=== PATIENT | female | born 1985 | race African-American/Black ===

== ENCOUNTER 2020-07-06 11:59 | Outpatient (REF) | payer OTHER, SELFPAY ==
[2020-07-06 12:50] LABS: Lipase 56 U/L (8-78)
[2020-07-06 13:10] LABS: Vitamin D 25-OH Total 14.9 ng/mL (>30)
== END 2020-07-06 12:00 | disposition home or self-care (01) ==
LOC: HO.LAB 11:59
PROVIDERS: Visit Provider Internal Medicine Gastroenterology
DX: E55.9 Vitamin D deficiency, unspecified (principal); R10.10 Upper abdominal pain, unspecified
CPT/HCPCS: 36415; 82306; 83690

== ENCOUNTER → 2020-11-18 13:07 | Outpatient (BNVA) | payer OTHER, SELFPAY | PROVIDERS: Visit Provider Internal Medicine Gastroenterology ==

== ENCOUNTER → 2021-01-25 | Outpatient (REF) | payer OTHER, SELFPAY ==
--- NOTE | ~2021-01-25 | NM_ITS ---
EXAMINATION: RADIONUCLIDE SOLID FOOD GASTRIC EMPTYING 4-HOUR STUDY CLINICAL INFORMATION: Early satiety. COMPARISON: No previous gastric emptying study is available for comparison. TECHNIQUE: A standard meal consisting of 4 oz of Egg Beaters brand equivalent tagged with 1 mCi Tc-99m Sulfur Colloid, 8 oz water and 2 slices of toast with jelly was administered orally to the patient. Images were obtained using a dual head gamma camera in the anterior and posterior projections over of the stomach immediately post ingestion and at hourly intervals up to 4 hours post ingestion. The anterior and posterior counts at each time interval were averaged using the geometric mean and expressed as percentage of the immediate post ingestion counts. FINDINGS: There is good visualization of activity in the stomach immediately post ingestion. As the study progresses, there is only fair clearance of activity from the stomach and visualization of increasing small bowel activity. At the end of the study there is mild abnormal retention of activity in the stomach at 4 hours. Retention in the stomach at each time interval was: 1 hour 85% (normal 37%-90%) 2 hours 51% (normal 30%-60%) 3 hours 26% 4 hours 19% (normal 0%-10%) NM/NM gastric emptying study IMPRESSION: Abnormal study. There is mild abnormal retention of solid food in the stomach at 4 hours.
== END ==
LOC: HO.NUCMED
PROVIDERS: Visit Provider Internal Medicine Gastroenterology
DX: R68.81 Early satiety (principal)
CPT/HCPCS: 78264; A9541

== ENCOUNTER → 2021-02-10 10:23 | Outpatient (BNVA) | payer OTHER, SELFPAY | PROVIDERS: Visit Provider Internal Medicine Gastroenterology ==

== ENCOUNTER 2021-04-20 08:03 | Emergency (ER) | payer OTHER, SELFPAY ==
[2021-04-20 08:05] VITALS: BP 119/70; PULSE 89; RESP 18; TEMP 35.9; O2SAT 99; BMI 31.1
--- NOTE | 2021-04-20 08:27 | ED_ITS ---
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 This happened about one hour ago. Patient is up to date with her tetanous shot. chief complaint: eye pain Onset (ago): minute(s) Onset description: sudden Duration: constant Location: left eye Eye Symptoms: burning and pain Severity: mild Related Data Previous Rx's Medication Instructions Recorded omeprazole 20 mg capsule,delayed 20 mg PO BID #180 cap 07/06/20 release cholecalciferol (vitamin D3) 125 125 mcg PO DAILY 60 Days #60 cap 07/11/20 mcg (5,000 unit) capsule famotidine 20 mg tablet 20 mg PO BID 30 Days #60 tab 11/18/20 metoclopramide HCl 5 mg tablet 5 mg PO TID 30 Days #90 tab 02/10/21 (Reglan) besifloxacin 0.6 % eye 1 drp OPHTHALMIC-LEFT TID 7 Days 04/20/21 drops,suspension (Besivance) #5 ml Allergies Allergy/AdvReac Type Severity Reaction Status Date / Time No Known Allergies Allergy Verified 02/10/21 10:25 [No Known Allergies*] Review of Systems Constitutional: Constitutional: Reports no additional constitutional complaints Eyes: Eyes: Reports no additional eye complaints ENT: Denies dizziness Cardiovascular: Cardiovascular: Reports no additional cardiovascular complaints Respiratory: Respiratory: Reports as per HPI Gastrointestinal: Gastrointestinal: Reports no additional gastrointestinal complaints Genitourinary: Genitourinary: Reports no additional female genitourinary complaints Musculoskeletal: Musculoskeletal: Reports no additional musculoskeletal complaints Integumentary/Breasts: Skin/Breast: Denies rash Neurologic: Reports system reviewed and no additional complaints, except as documented, Denies dizziness and Denies Sensory deficit (Neuro) Psychiatric: Psychiatric: Denies anxiety PMFSH Past Medical History Medical History Elevated lipase Surgical History H/O section H/O esophagogastroduodenoscopy S/P dilatation and curettage Social History Social History Alcohol intake: unknown Patient Tobacco Use Status: Never used Tobacco Physical Exam Vital Signs: Vital Signs: Last Vital Signs Temp 96.7 F L 04/20/21 08:05 Pulse 89 04/20/21 08:05 Resp 18 04/20/21 08:05 BP 119/70 04/20/21 08:05 Pulse Ox 99 04/20/21 08:05 Body Mass Index 31.1 Const: General: healthy appearing Nutritional Appearance: average body habitus Orientation/consciousness: oriented to person and patient oriented x3 Limitations: no limitations HENMT: Head: Yes normal to inspection Ears: external ears normal General nose exam: Normal external nose present Mouth: Normal oral and palatal mucosa present and oropharynx normal Throat: Yes posterior oropharynx normal Eyes: Other: left eye with slight injection Neck: Other: supple Neck: Yes normal visual inspection Chest: Chest palpation & inspection: normal inspection of the chest Resp: Auscultation: clear to auscultation bilaterally Cardio: Jugular venous distension: no JVD Rate: regular rate Rhythm: regular rhythm Heart sounds: S1 normal heart sound present and S2 normal heart sound present GI: Inspection: Yes normal to inspection Palpation (GI): Soft to palpation, nontender and No hepatosplenomegaly present Auscultation: normal bowel sounds : General: Yes no CVA tenderness Back/Spine/Pelvis: Back: no CVA tenderness Skin: General skin exam: no rashes or lesions noted Neuro: General: oriented to person and patient oriented x3 Cranial nerves: Yes CN's II-XII intact bilaterally Motor exam (neuro): 5/5 motor strength present throughout Sensory Exam: No Sensory deficit (Neuro) Extrem: General: Yes normal to inspection Psych: Appearance: grossly normal Course Reevaluation(s) Reevaluation #1: irrigated with 2L NS, flouriscene stain shows uptake in the center of the cornea, antibiotics given Time: 10:14 Discharge Plan Discharge Clinical Impression: Corneal abrasion, Chemical exposure of eye Patient Disposition: Home, Self-Care Instructions: Corneal Abrasion (ED) Additional Instructions: must go to work connection for clearance Prescriptions: New Besivance 0.6 % drops,suspension 1 drp ophthalmic-Left TID 7 Days Qty: 5 RF: 0 No Action omeprazole 20 mg capsule,delayed release(DR/EC) 20 mg PO BID Qty: 180 RF: 1 cholecalciferol (vitamin D3) 125 mcg (5,000 unit) capsule 125 mcg PO DAILY 60 Days Qty: 60 RF: 3 famotidine 20 mg tablet 20 mg PO BID 30 Days Qty: 60 RF: 3 metoclopramide HCl [Reglan] 5 mg tablet 5 mg PO TID 30 Days Qty: 90 RF: 1 Interventions: ED Discharge Assessment Last Done: 04/20/21 10:31 Discharge Date/Time: 04/20/21 10:31
[2021-04-20] MEDS: Tetracaine HCl/PF 0.5% Oph Sol 4 ML DROPS 3 DROP EYE-LEFT (08:46)
[2021-04-20] MEDS: Fluorescein Sodium STRIP 1 STRIP EYE-LEFT (10:14)
[2021-04-20] MEDS: Erythromycin Base 0.5% Oph Oin 1 GM TUBE 1 CM EYE-LEFT (10:24)
== END 2021-04-20 10:31 | disposition home or self-care (01) ==
PROVIDERS: Emergency Provider Emergency Medicine
DX: S05.02XA Injury of conjunctiva and corneal abrasion without foreign body, left eye, initial encounter (principal); X58.XXXA Exposure to other specified factors, initial encounter; Y93.9 Activity, unspecified; Y92.239 Unspecified place in hospital as the place of occurrence of the external cause; Y99.0 Civilian activity done for income or pay; Z77.29 Contact with and (suspected) exposure to other hazardous substances
CPT/HCPCS: 99284

== ENCOUNTER → 2021-04-20 10:37 | Outpatient (BNVA) | payer OTHER, SELFPAY | PROVIDERS: Visit Provider Physician Assistant ==

== ENCOUNTER 2022-02-13 12:15 | Outpatient (REF) | payer OTHER, SELFPAY ==
--- NOTE | ~2022-02-13 | XR_ITS ---
EXAMINATION: XR knee standing BI, XR knee LT 2V CLINICAL INFORMATION: Reason for Exam M25.561 - Pain in left and right knee COMPARISON: MRI knee 02/15/2022 TECHNIQUE: Two views of the left knee rate 1 view of the bilateral standing knees. FINDINGS: * Minimally depressed impaction fractures at the sulcus terminalis and posterior medial and lateral tibial plateau were better characterized on subsequently performed MR knee. * Joint spaces are maintained without significant degenerative change. * Small suprapatellar joint effusion. XR/XR knee standing BI IMPRESSION: Minimally depressed impaction fractures at the sulcus terminalis and posterior medial and lateral tibial plateau were better characterized on subsequently performed MR knee. Small suprapatellar joint effusion.
--- NOTE | ~2022-02-13 | XR_ITS ---
EXAMINATION: XR knee standing BI, XR knee LT 2V CLINICAL INFORMATION: Reason for Exam M25.561 - Pain in left and right knee COMPARISON: MRI knee 02/15/2022 TECHNIQUE: Two views of the left knee rate 1 view of the bilateral standing knees. FINDINGS: * Minimally depressed impaction fractures at the sulcus terminalis and posterior medial and lateral tibial plateau were better characterized on subsequently performed MR knee. * Joint spaces are maintained without significant degenerative change. * Small suprapatellar joint effusion. XR/XR knee LT 2V IMPRESSION: Minimally depressed impaction fractures at the sulcus terminalis and posterior medial and lateral tibial plateau were better characterized on subsequently performed MR knee. Small suprapatellar joint effusion.
== END 2022-02-13 12:16 | disposition home or self-care (01) ==
LOC: HO.HOSX 12:15
PROVIDERS: Visit Provider Physician Assistant
DX: M23.92 Unspecified internal derangement of left knee (principal)
CPT/HCPCS: 73560; 73565; 99202

== ENCOUNTER 2022-02-15 12:20 | Outpatient (REF) | payer OTHER, SELFPAY ==
--- NOTE | ~2022-02-15 | MR_ITS ---
EXAMINATION: MR KNEE WITHOUT CONTRAST, LEFT CLINICAL INFORMATION: Left knee pain and swelling. Jumping injury. Webster a pop. Injury 3 days ago. COMPARISON: Left knee radiographs dated 02/13/2022. TECHNIQUE: MRI of the knee without contrast was performed using routine sequences on a high-field scanner. FINDINGS: MENISCI: Medial Meniscus: Intact Lateral Meniscus: Complete radial tear of the posterior horn/root junction with a superiorly displaced meniscal flap. The meniscal body is slightly laterally extruded with minimal inner margin fraying. LIGAMENTS: Cruciate: Complete tear of the anterior cruciate ligament with diffuse thickening and irregularity of the torn ligament fibers. Adjacent soft tissue edema. Intact posterior cruciate ligament. Collateral: Edema adjacent to the medial collateral ligament which could represent a grade 1 sprain. Intact fibular collateral ligament. EXTENSOR MECHANISM: Intact. ARTICULAR CARTILAGE/BONE: Patellofemoral Compartment: Intact articular cartilage. Medial Compartment: Minimally depressed impaction fracture at the posterior aspect of the medial tibial plateau measuring up to 2 cm in ML dimension with 0.1 cm of cortical step-off. Lateral Compartment: Minimally depressed impaction fracture at the posterior aspect of the lateral tibial plateau measuring 2.1 cm in ML dimension. Minimal cortical depression with marrow edema at the sulcus terminalis. JOINT FLUID AND BURSAE: Moderate joint effusion. Prominent circumferential soft tissue edema. MR/MR knee LT wo con IMPRESSION: 1. Acute, complete tear of the anterior cruciate ligament. 2. Probable grade 1 sprain of the medial collateral ligament. 3. Complete radial tear of the lateral meniscus posterior horn/root junction with a superiorly displaced meniscal flap adjacent to the posterior root. 4. Minimally depressed impaction fractures at the sulcus terminalis and posterior medial and lateral tibial plateau. Moderate joint effusion with prominent circumferential soft tissue edema.
== END 2022-02-15 12:21 | disposition home or self-care (01) ==
LOC: HO.MRI 12:20
PROVIDERS: Visit Provider Physician Assistant
DX: M23.92 Unspecified internal derangement of left knee (principal)
CPT/HCPCS: 73721

== ENCOUNTER → 2022-02-20 13:04 | Outpatient (BNVA) | payer OTHER, SELFPAY | PROVIDERS: Visit Provider Physician Assistant | DX: M23.92 Unspecified internal derangement of left knee (principal); S83.512D Sprain of anterior cruciate ligament of left knee, subsequent encounter | CPT/HCPCS: 20610 ==

== ENCOUNTER 2022-03-10 09:00 | Outpatient (RCR) | payer OTHER, SELFPAY ==
--- NOTE | 2022-02-22 10:52 | MHC.PT.EP ---
[facility] [place] Office [place] Office [place] Office [address] Marley Allred [address] [phone] F: [phone] F: [phone] F: [phone] F: [phone] Physical Therapy Plan of Care Date of Evaluation: Date of Surgery: n/a Diagnosis: L ACL tear Assessment: Patient is a 37 year old female presenting to PT with complaints of pain in her L knee. Pt reports onset of pain began 02/12/2022 due to landing weird after a layup when playing basketball. He presents today with impairments in pain, ROM, strength, gait mechanics. 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 Pt expresses superintendent terminal goal of improving ROM for surgery which is tentatively scheduled for 03/22/2022, and is motivated to work towards this in PT. Clinical presentation today is most consistent with signs and sx associated with MRI findings of L ACL tear and pt will benefit from skilled PT to address the following problems and impairments noted upon evaluation: pain, ROM, strength, gait mechanics. These problems limit the patient with the following functional activities: work, ambulation, stair negotiation, ADLs, basketball, running. The prescribed treatment plan of care is medically necessary. Co-morbidities of none were identified and taken into considerations of plan of care. Pt was educated on HEP, role of PT, prognosis, POC, proper crutch use and brace donning. Frequency and Duration: The patient will be seen 2 x week x 4 weeks Short Term Goals: Pt will demonstrate improved L knee AROM for flexion by 20 degrees in 2 weeks to maximize post op outcomes. Pt will demonstrate improved L knee MMT by 1/3 grade in 2 weeks. Jail Goals: Pt will demonstrate improved LEFI score by 9 points in 4 weeks for improved post op outcomes. Pt will demonstrate ability to ambulate in brace and good mechanics in 4 weeks to maximize post op outcomes. Treatment Plan: Modalities to reduce pain, spasms and effusion. Manual therapy to restore motion and function. Therapeutic exercise to improve strength and flexibility. Neuromuscular re-education for posture and balance. Therapeutic activities to return to functional activities of daily living. Electronically signed by: Jeanette Hogue, PT, DPT, ATC Please sign and return to therapist. Thank you for your referral.
--- NOTE | 2022-03-10 09:54 | MHC.PT.DC ---
[facility] [place] Office [place] Office [place] Office [address] Marley Allred 140 [facility] [phone] F: [phone] F: [phone] F: [phone] F: [phone] Physical Therapy Discharge Report Diagnosis: L ACL tear Date of Surgery: n/a Date of Evaluation: 02/22/22 Date of Discharge: 03/10/22 Treatments to Date: 6 Cancellations to Date: 0 No Shows to Date: 0 Discharge Status: Discharge Summary: 03/10/2022: Pt has made gains in knee ROM, strength, and gait mechanics in the brace since start of care which will improve her post op outcomes. She is scheduled for surgery next Sunday. Pt is a good candidate for surgery as she continues with quite a bit of limitations in ROM, strength, and general functional mobility. Pt will benefit from skilled PT following surgery. Reviewed proper way to elevate when icing at home after surgery and avoid putting pillows under the knee. Electronically signed by: Jeanette Hogue, PT, DPT, ATC Please sign and return to therapist. Thank you for your referral.
== END 2022-03-10 09:54 | disposition home or self-care (01) ==
LOC: HO.PTCHIC 09:00
PROVIDERS: Visit Provider Physician Assistant
DX: S83.512A Sprain of anterior cruciate ligament of left knee, initial encounter (principal)
CPT/HCPCS: 97110; 97140; 97161; 97530

== ENCOUNTER 2022-03-15 07:34 | Day surgery (SDC) | payer OTHER, SELFPAY ==
[2022-03-09 14:31] VITALS: BMI 31.1
--- NOTE | 2022-03-14 09:11 | HO.ANESPROP2 ---
Documented by User: Amy Franco NP 03/14/22 09:12 HPI - Anesthesia Eval Consult details Narrative: 37yo F for Left ACL Allograft reconstruction PMFSH Active Problems Active Problems: All Active Problems (Updated 02/15/22 @ 16:22 by Tasneem Funk PA-C) S/P ACL reconstruction (Acute) Left ACL tear (Acute) Internal derangement of knee (Acute) Gastroparesis (Acute) Early satiety (Acute) Vitamin D deficiency (Acute) Upper abdominal pain (Acute) GERD with esophagitis (Acute) Past Medical History Medical History Elevated lipase Surgical History Surgical History H/O section H/O esophagogastroduodenoscopy S/P dilatation and curettage Social History Social History Alcohol intake: unknown Patient Tobacco Use Status: Never used Tobacco Use of substances other than those prescribed or required for medical reasons: No Are you DNR?: No Advance Directives: No Advance Directives Information Provided: Yes Advance Directives on File: No Current occupational status: employed 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 Meds Allergies Allergy/AdvReac Type Severity Reaction Status Date / Time No Known Allergies Allergy Verified 02/20/22 13:23 [No Known Allergies*] Exam Exam Date and Time: March 14, 2022 0911 Height,Weight and Vital Signs: Height 5 ft 2 in Weight 77.111 kg Assessment and Plan Assessment Anesthesia Assessment: Chart Reviewed Documented by User: Art Mccauley MD 03/15/22 10:00 PMFSH Past Medical History Medical History Elevated lipase Family History Family history of problems with anesthesia: No Surgical History Surgical History H/O section H/O esophagogastroduodenoscopy S/P dilatation and curettage History of Problems with Anesthesia: No Social History Social History Alcohol intake: unknown Patient Tobacco Use Status: Never used Tobacco Use of substances other than those prescribed or required for medical reasons: No Are you DNR?: No Advance Directives: No Advance Directives Information Provided: Yes Advance Directives on File: No Current occupational status: employed 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 [employer] Allergies Allergy/AdvReac Type Severity Reaction Status Date / Time No Known Allergies Allergy Verified 02/20/22 13:23 [No Known Allergies*] Exam Airway Mallampati Class: II TM Dist: >3cm Neck ROM: Full Loose/Missing/Broken Teeth: No Heart: rrr+[id number] Lungs: cta b/l Assessment and Plan Assessment Anesthesia Assessment: Anesthesia Plan Discussed Final Anesthetic Review Family History of Problems with Anesthesia: No History of Problems with Anesthesia: No NPO: Yes ASA Class: II Final Preanesthetic Review: No Changes in Pt Med Stat, Meds/Allgs Chart Reviewed, Consent Obtained/Reviewed and Anes Risks/Benef Reviewed Patient Risk: Intermediate Procedure Risk: Intermediate Assessment/Block/Sedation in SS: Assess/Block/Sedation-SS Anesthetic Plan Anesthetic Plan: GA, Regional Block (done by Dr. Medina) and Agree w/ Assess. and Plan Disposition: Standard PACU
[2022-03-15] VITALS (14 sets, daily range): BP systolic 114–146; BP diastolic 55–84; PULSE 87–109; RESP 10–17; TEMP 36.3–36.7; O2SAT 96–100
[2022-03-15 08:08] LABS: UPreg QC Valid YES; Urine Pregnancy NEGATIVE (NEGATIVE)
[2022-03-15] MEDS: Lactated Ringers 1,000 ML 100 ML IVCONT (08:16)
--- NOTE | 2022-03-15 09:15 | MHC.SHP ---
Pre-Procedural Eval Section A Date of Service: 03/15/22 The patient is an INPATIENT: No Changes since office visit: Yes Patient answered all questions; No Cold of Flu in the past 2 weeks, No New Medical Problems and No Changes in Medication The History & Physical has been completed within 30 days and I have reviewed it.: Yes Section B Chief Complaint: Sprain of anterior cruciate ligament of left knee, Allergies: Allergies Allergy/AdvReac Type Severity Reaction Status Date / Time No Known Allergies Allergy Verified 02/20/22 13:23 [No Known Allergies*] Plan I have reviewed the history and physical and performed a pertinent physical examination on my patient. No changes have occurred unless specified.
--- NOTE | 2022-03-15 11:36 | PM.OP ---
Brief Operative Note Date of Service: 03/15/22 Pre-op diagnosis: Left ACL tear Post-op diagnosis: same Procedure: Left ACL reconstruction with Allograft Implants: Pelletier and Nephew ACL endobutton and [id number] interference screw Surgeon: Sachin Palacios MD Anesthesia: GETA and regional Was an Dental Treatment Coordinator used for this Procedure?: Yes Dental Treatment Coordinator: Collette Muñoz Estimated blood loss (mL): 5 Tourniquet time (min): 75 IV fluids (mL): 1,000 Pathology: none sent Condition: stable Disposition: PACU
[2022-03-15] MEDS: HYDROmorphone HCl 0.5 MG/0.5 ML SYRINGE IVPUSH ×3 (12:12→13:39)
[2022-03-15] MEDS: oxyCODONE HCl Immed Release 5 MG TABLET 10 MG PO (13:38)
--- NOTE | 2022-03-21 09:25 | W.PM.OPN ---
Operative Note Operative Note Date of Service: 03/15/22 Narrative: Date of Service: 03/15/22 Pre-op diagnosis: Left ACL tear Post-op diagnosis: same Procedure: Left ACL reconstruction with Allograft Implants: [employer]hew ACL endobutton and [id number] interference screw Surgeon: Sachin Palacios MD Anesthesia: GETA and regional Was an Blending Tank Helper used for this Procedure?: Yes Blending Tank Helper: Collette Muñoz Estimated blood loss (mL): 5 Tourniquet time (min): 75 IV fluids (mL): 1,000 Pathology: none sent Condition: stable Disposition: PACU Procedure in detail: Patient was brought to the operating room placed supine on the arthroscopic table and prepped and draped in standard sterile fashion. A time-out was called to identify proper site proper procedure proper surgeon and IV antibiotics per weight were administered. Under anesthesia she had a + pivot shift. I began by exsanguinating the limb and insufflating tourniquet to 300 mm Hg. Then made a standard anterolateral stab incision. The knee was insufflated with water and 30 degree arthroscope was placed. There was grade 1 fibrillations of the patella but overall suprapatellar pouch and the gutters were clean. I descended into the medial compartment where I made my far medial portal under direct visualization. THe medial and lateral meniscus were stable with only a small flap tear of the lateral meniscus without ionstability or root involvmenent. I then examined the notch where there was a + empty wall sign and an intact PCL. I debrided the stump and acl footprint and performed a limited notchplasty. I then, through a far AM portal and a 7mm behind the back guide, drilled a k-wire through the LFC with the knee in hyper-flexion. I measured the tunnel as a 31 and then after sizing the allograft on the back table drilled a 25 mm tunnel with an 9.5 mm reamer. The final 6 mm was drilled with a 4.5 reamer. I then pulled a suture through the femoral tunnel and turned my attention to the tibia. I did examine the femoral tunnel and was satisfied with the posterior wall and its location low and medial at the anatomic footprint. I placed my tibial drill guide in 55 deg and, through a anteromedial inc just lateral to the tibial tubercle placed a k-wire into the notch exiting just medial to the anterior horn insertion of the lateral meniscus. I then over-reamed with an 11 reamer. I cleaned the tunnels up with a shaver. On the back table I whip-stitched the allograft to fit through an 11 aperture and attached the femoral button to the looped end. The allogreaft was prepared on the back table. It measured 9.5 mm. I placed the graft on 15lbs of tension for 10 minutes. I then passed the allograft through the tibial tunnel and femoral tunnel and flipped the button. I cycled the knee about 10-15 cycles and then placed a tibial interference screw with the knee in hyper-extension while holding the graft taught. Once I was satisfied that the interference screw was buried I examined the ACL and the medial meniscus repair. The repair was stable and the ACL was not impinging and there was a negative pivot shift. I then removed all instrumentation and closed the incisions with nylon. Patient was then placed in sterile dressings and a hinged knee brace. She was then extubated brought recovery room stable condition. There were no known complications.
== END 2022-03-15 16:45 | disposition home or self-care (01) ==
PROVIDERS: Nurse Practitioner; Visit Provider Orthopaedic Surgery
PROC: (CPT 27428; principal; 2022-03-15 09:00)
DX: S83.512A Sprain of anterior cruciate ligament of left knee, initial encounter (principal); M23.90 Unspecified internal derangement of unspecified knee; X58.XXXA Exposure to other specified factors, initial encounter; Y93.9 Activity, unspecified; Y92.9 Unspecified place or not applicable; Y99.8 Other external cause status; R74.8 Abnormal levels of other serum enzymes; Z79.899 Other long term (current) drug therapy
CPT/HCPCS: 29888; 81025; C1713; C1769; J0131; J0171; J0690; J1100; J1170; J2250; J2405; J2795; J3010

== ENCOUNTER 2022-03-23 07:47 | Outpatient (REF) | payer OTHER, SELFPAY ==
--- NOTE | ~2022-03-23 | XR_ITS ---
EXAMINATION: XR KNEE, LEFT CLINICAL INFORMATION: Pain COMPARISON: 02/13/2022 TECHNIQUE: 2 of the left knee. FINDINGS: Postoperative changes of the left knee joint with soft tissue edema and suprapatellar effusion. XR/XR knee LT 2V IMPRESSION: Postoperative changes of the left knee joint with soft tissue edema and suprapatellar effusion.
== END 2022-03-23 07:48 | disposition home or self-care (01) ==
LOC: HO.HOSX 07:47
PROVIDERS: Visit Provider Physician Assistant
DX: M25.562 Pain in left knee (principal)
CPT/HCPCS: 73560

== ENCOUNTER → 2022-06-02 12:41 | Outpatient (BNVA) | payer OTHER, SELFPAY | PROVIDERS: Visit Provider Physician Assistant | DX: S83.512D Sprain of anterior cruciate ligament of left knee, subsequent encounter (principal) ==

== ENCOUNTER → 2022-06-30 07:56 | Outpatient (BNVA) | payer OTHER, SELFPAY | PROVIDERS: Visit Provider Physician Assistant | DX: S83.512A Sprain of anterior cruciate ligament of left knee, initial encounter (principal) ==

== ENCOUNTER → 2022-09-25 11:26 | Outpatient (BNVA) | payer OTHER, SELFPAY | PROVIDERS: Visit Provider Physician Assistant Medical | DX: Z13.89 Encounter for screening for other disorder (principal) | CPT/HCPCS: 99202 ==

== ENCOUNTER 2022-09-29 10:13 | Outpatient (REF) | payer SELFPAY ==
--- NOTE | ~2022-09-29 | XR_ITS ---
EXAMINATION: XR KNEE, LEFT XR KNEE STANDING, BILATERAL CLINICAL INDICATION: Pain left knee. COMPARISON: Left knee 03/23/2022 TECHNIQUE: AP bilateral knee standing and left knee 2 views. FINDINGS: AP BILATERAL KNEE: There is mild reduction in the medial compartment joint space both knees. The lateral compartment joint space is normal. No bony erosive changes seen. No visible fracture. There is previous left AC ligament repair changes. The soft tissues are normal. LEFT KNEE: The patellofemoral compartment joint space is maintained normal. No loose bodies or joint effusion seen. No bony erosive changes. XR/XR knee LT 2V IMPRESSION: 1. Mild degenerative changes medial compartment both knees. No visible acute fracture or dislocation seen. 2. There is previous left AC ligament repair.
--- NOTE | ~2022-09-29 | XR_ITS ---
EXAMINATION: XR KNEE, LEFT XR KNEE STANDING, BILATERAL CLINICAL INDICATION: Pain left knee. COMPARISON: Left knee 03/23/2022 TECHNIQUE: AP bilateral knee standing and left knee 2 views. FINDINGS: AP BILATERAL KNEE: There is mild reduction in the medial compartment joint space both knees. The lateral compartment joint space is normal. No bony erosive changes seen. No visible fracture. There is previous left AC ligament repair changes. The soft tissues are normal. LEFT KNEE: The patellofemoral compartment joint space is maintained normal. No loose bodies or joint effusion seen. No bony erosive changes. XR/XR knee standing BI IMPRESSION: 1. Mild degenerative changes medial compartment both knees. No visible acute fracture or dislocation seen. 2. There is previous left AC ligament repair.
== END 2022-09-29 10:14 | disposition home or self-care (01) ==
LOC: HO.HOSX 10:13
PROVIDERS: Visit Provider Orthopaedic Surgery
DX: S89.92XA Unspecified injury of left lower leg, initial encounter (principal); W19.XXXA Unspecified fall, initial encounter; Y93.79 Activity, other specified sports and athletics; Y92.9 Unspecified place or not applicable; Y99.9 Unspecified external cause status; Z98.890 Other specified postprocedural states
CPT/HCPCS: 73560; 73565; 99212

== ENCOUNTER → 2022-10-05 09:32 | Outpatient (BNVA) | payer OTHER, SELFPAY | PROVIDERS: Visit Provider Internal Medicine | DX: Z13.89 Encounter for screening for other disorder (principal) | CPT/HCPCS: 99212; 99213 ==

== ENCOUNTER 2022-10-18 15:21 | Outpatient (REF) | payer OTHER, SELFPAY ==
--- NOTE | ~2022-10-18 | MR_ITS ---
EXAMINATION: MR KNEE WITHOUT CONTRAST, LEFT CLINICAL INFORMATION: Other specified postprocedural states. Pain in the left knee since fall. Z98.890 COMPARISON: 02/15/2022 TECHNIQUE: MRI of the knee without contrast was performed using routine sequences on a high-field scanner. FINDINGS: MENISCI: Medial Meniscus: Intact Lateral Meniscus: Again seen are chronic changes of a prior tear at the posterior root with a small peripheral band of residual intact fibers. There is subtle inner margin fraying at the junction of the posterior horn and body which is new as compared to prior. LIGAMENTS: Cruciate: ACL graft is intact with small foci of internal cystic expansion at both the femoral and tibial tunnels. No tears or appreciable impingement. The graft is slightly vertical in orientation. No arthrofibrosis. PCL is normal. Collateral: Intact EXTENSOR MECHANISM: Quadriceps and patellar tendons are intact. No tears or tendinosis. Insall-Salvati ratio is 1.4, normal. ARTICULAR CARTILAGE/BONE: Patellofemoral Compartment: Lateral trochlear inclination angle measures 6.5 degrees . Sulcus angle measures 144 degrees, within normal limits. Articular cartilage is normal. TT TG distance measures 9 mm. Medial Compartment: Normal. Lateral Compartment: Foci of mild chronic cortical depression are again seen at the sulcus terminalis of the lateral femoral condyle and the posterior margin of the lateral tibial plateau, unchanged in morphology as compared to the prior MRI from 02/15/2022. There is chondral fissuring along the site of depression at the posterior margin of the lateral tibial plateau. No new osseous injuries. JOINT FLUID AND BURSAE: No joint effusion. No Streeter's cyst. MR/MR knee LT wo con IMPRESSION: 1. Prior posterior root tear of the lateral meniscus with a thin residual band of intact fibers. New inner margin fraying at the junction of the posterior horn and body. No new meniscal tears. 2. Intact ACL graft with small foci of cystic expansion at the femoral and tibial tunnels. No recurrent tears or arthrofibrosis. 3. Increased chondral fissuring at the previously seen cortical depression fracture at the posterior margin of the lateral tibial plateau. Unchanged cortical depression of the lateral femoral condyle. No new osteochondral injuries.
== END 2022-10-18 15:22 | disposition home or self-care (01) ==
LOC: HO.MRI 15:21
PROVIDERS: Visit Provider Orthopaedic Surgery
DX: Z98.890 Other specified postprocedural states (principal)
CPT/HCPCS: 73721

== ENCOUNTER → 2022-10-19 08:24 | Outpatient (BNVA) | payer OTHER, SELFPAY | PROVIDERS: Visit Provider Orthopaedic Surgery | DX: Z98.890 Other specified postprocedural states (principal) | CPT/HCPCS: 99212 ==

== ENCOUNTER → 2022-11-02 13:45 | Outpatient (BNVA) | payer OTHER, SELFPAY | PROVIDERS: Visit Provider Orthopaedic Surgery | DX: Z98.890 Other specified postprocedural states (principal) | CPT/HCPCS: 99212 ==

== ENCOUNTER → 2022-11-30 09:32 | Outpatient (BNVA) | payer OTHER, SELFPAY | PROVIDERS: Visit Provider Orthopaedic Surgery | DX: M25.562 Pain in left knee (principal); Z98.890 Other specified postprocedural states | CPT/HCPCS: 99212 ==

== ENCOUNTER 2022-12-28 11:19 | Outpatient (AMB) | payer OTHER, SELFPAY ==
--- NOTE | 2022-12-28 11:20 | MHC.OFFVIS ---
Intake Vital Signs 12/28/22 11:21 Height 5 ft 2 in Weight 170 lb BMI 31.1 Intake Visit Reasons: OV-LT knee pain-DOI 09/25/22-F/U Intake Note: Lisbet is a 37 year old female who presents today for a follow up of her left knee s/p left ACL repair, 03/15/22 NE and post operative injury on 09/25/22. Patient reports that she is doing well, she mentions that she is having some mild pain on the medial aspect of the knee when standing with the knees locked out for long preiods to time. Allergies No Known Allergies [No Known Allergies*] Allergy (Verified 11/30/22 09:34) HPI OV-LT knee pain-DOI 09/25/22-F/U HPI Details Lisbet is a 37 year old woman who returns with worsening left knee pain,? S/P fall, DOI: 09/25/22 while at work. She is ~9 months S/P left ACL repair. She says she is doing well and her pain is improving. She feels good, but she does admit to feeling sore after periods of prolonged standing. She continues to work with PT. She continues to use her Cryo cuff, which she says helps, but her knee brace causes her to develop increased swelling so she does not use it often. 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 She is S/P left ACL reconstruction, DOS: 03/15/22. She has improving pain with activity and demonstrates intact ACL and meniscus. She has been working light duty since 11/06/22. She has been working with PT and using a stationary bicycle, as well as strengthening exercises at home. I recommend she continue to work with PT and focus on quad strengthening exercises, including the use of a stationary bicycle, and continue the use of her Cryo cuff prn. She was given a note to return to work without restrictions. She will follow up in 3 months. Plan Scribed for Sachin Palacios MD by Rudi Sarkar, medical research scientist, on 12/28/22 at 11:40 AM, EST. Coding Level of Care Code Est Pt Level 3 (02329) Diagnoses S/P ACL reconstruction Z98.890
[2022-12-28 11:21] VITALS: BMI 31.1
== END 2022-12-28 11:36 | disposition home or self-care (01) ==
PROVIDERS: Visit Provider Orthopaedic Surgery
DX: M25.562 Pain in left knee (principal); S83.512D Sprain of anterior cruciate ligament of left knee, subsequent encounter
CPT/HCPCS: 99213

== ENCOUNTER → 2022-12-28 11:19 | Outpatient (BNVA) | payer OTHER, SELFPAY | PROVIDERS: Visit Provider Orthopaedic Surgery | DX: Z98.890 Other specified postprocedural states (principal) | CPT/HCPCS: 99212 ==

== ENCOUNTER 2023-02-26 16:00 | Outpatient (RCR) | payer OTHER, SELFPAY ==
--- NOTE | 2022-03-17 12:16 | MHC.PT.EP ---
[facility] [place] Office [place] Office [place] Office [address] Marley Allred [address] [phone] F: [phone] F: [phone] F: [phone] F: [phone] Physical Therapy Plan of Care Date of Evaluation: Date of Surgery: 03/15/2022 Diagnosis: s/p L ACL reconstruction Assessment: Patient is a 37 year old female presenting to PT s/p L ACL reconstruction (unknown what was done to the meniscus at this time as op note is not currently available) on 03/15/2022. She presents today with impairments in pain, ROM, knee strength, hip strength, gait mechanics. 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 Clinical presentation today is most consistent with signs and sx associated with L ACL reconstruction (unclear about meniscus at this time due to op note being unavailable) and pt will benefit from skilled PT to address the following problems and impairments noted upon evaluation: pain, ROM, knee strength, hip strength, gait mechanics. These problems limit the patient with the following functional activities: work, running, jumping, basketball, ambulating, ADLS, caring for kids, stair negotiation. The prescribed treatment plan of care is medically necessary. Co-morbidities of none were identified and taken into considerations of plan of care. Pt was educated on HEP, role of PT, prognosis, POC. Frequency and Duration: The patient will be seen 2 x week x 16 weeks Short Term Goals: Pt will demonstrate good VMO recruitment without extension lag in 4 weeks. Pt will demonstrate L knee flexion AROM to 90 deg in 4 weeks. Pt will demonstrate L knee extension AROM to 0 for symmetry with R knee in 4 weeks. Pt will demonstrate increased L patella mobility to 3/6 in 4 weeks. Pt will demonstrate gait mechanics WNL in brace in 6 weeks. Pt will demonstrate B hip strength at least 4/5 for improved lumbopelvic stability in 6 weeks. Pt will demonstrate L knee passive flexion to 120 deg for improved ability to maintain sitting in 6 weeks. Half-Way Goals: Pt will demonstrate increased L knee flexion to 135 deg for ability to perform full bicycle revolution in 8 weeks. Pt will demonstrate ability to ambulate with normal gait mechanics without brace in 8 weeks. Pt will demonstrate L SLS EO x 15 sec and L SLS EO on foam x 15 sec for improved L knee proprioception in 10 weeks. Pt will demonstrate B hip strength at least 4+/5 in 10 weeks for improved lumbopelvic stability. Pt will demonstrate knee strength at least +/5 in 10 weeks. Pt will demonstrate L SL squat within 4 cm of RLE for decreased risk of reinjury in 12 weeks. Pt will demonstrate L SL CR within 90% of RLE with good mechanics in 12 weeks. Pt will demonstrate DL squat jump with good mechanics in 12 weeks. Treatment Plan: Modalities to reduce pain, spasms and effusion. Manual therapy to restore motion and function. Therapeutic exercise to improve strength and flexibility. Neuromuscular re-education for posture and balance. Therapeutic activities to return to functional activities of daily living. Electronically signed by: Jeanette Hogue, PT, DPT, ATC Please sign and return to therapist. Thank you for your referral.
--- NOTE | 2022-12-25 15:50 | MHC.PT.EP ---
[facility] [place] Office [place] Office [place] Office [address] Marley Allred [address] [phone] F: [phone] F: [phone] F: [phone] F: [phone] Physical Therapy Plan of Care Date of Evaluation: Date of Surgery: 03/15/2022 Diagnosis: s/p L ACL reconstruction Assessment: Patient is a 37 year old female presenting to PT s/p L ACL reconstruction (unknown what was done to the meniscus at this time as op note is not currently available) on 03/15/2022. She presents today with impairments in pain, ROM, knee strength, hip strength, gait mechanics. 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 Clinical presentation today is most consistent with signs and sx associated with L ACL reconstruction (unclear about meniscus at this time due to op note being unavailable) and pt will benefit from skilled PT to address the following problems and impairments noted upon evaluation: pain, ROM, knee strength, hip strength, gait mechanics. These problems limit the patient with the following functional activities: work, running, jumping, basketball, ambulating, ADLS, caring for kids, stair negotiation. The prescribed treatment plan of care is medically necessary. Co-morbidities of none were identified and taken into considerations of plan of care. Pt was educated on HEP, role of PT, prognosis, POC. Frequency and Duration: The patient will be seen 2 x week x 16 weeks Short Term Goals: Pt will demonstrate good VMO recruitment without extension lag in 4 weeks. MET Pt will demonstrate L knee flexion AROM to 90 deg in 4 weeks. MET Pt will demonstrate L knee extension AROM to 0 for symmetry with R knee in 4 weeks. MET Pt will demonstrate increased L patella mobility to 3/6 in 4 weeks. MET Pt will demonstrate gait mechanics WNL in brace in 6 weeks. MET Pt will demonstrate B hip strength at least 4/5 for improved lumbopelvic stability in 6 weeks. Pt will demonstrate L knee passive flexion to 120 deg for improved ability to maintain sitting in 6 weeks. Mcfp Goals: Pt will demonstrate increased L knee flexion to 135 deg for ability to perform full bicycle revolution in 8 weeks. Pt will demonstrate ability to ambulate with normal gait mechanics without brace in 8 weeks. Pt will demonstrate L SLS EO x 15 sec and L SLS EO on foam x 15 sec for improved L knee proprioception in 10 weeks. Pt will demonstrate B hip strength at least 4+/5 in 10 weeks for improved lumbopelvic stability. Pt will demonstrate knee strength at least 4+/5 in 10 weeks. Pt will demonstrate L SL squat within 4 cm of RLE for decreased risk of reinjury in 12 weeks. Pt will demonstrate L SL CR within 90% of RLE with good mechanics in 12 weeks. Pt will demonstrate DL squat jump with good mechanics in 12 weeks. Treatment Plan: Modalities to reduce pain, spasms and effusion. Manual therapy to restore motion and function. Therapeutic exercise to improve strength and flexibility. Neuromuscular re-education for posture and balance. Therapeutic activities to return to functional activities of daily living. Electronically signed by: Jeanette Hogue, PT, DPT, ATC Please sign and return to therapist. Thank you for your referral.
--- NOTE | 2023-03-30 10:10 | MHC.PT.DC ---
[facility] [place] Office [place] Office [place] Office [address] [phone] F: [phone] F: [phone] F: [phone] F: [phone] Physical Therapy Discharge Report Diagnosis: s/p L ACL reconstruction Date of Surgery: 03/15/2022 Date of Evaluation: 03/17/22 Date of Discharge: 03/30/23 Treatments to Date: 60 Cancellations to Date: 6 No Shows to Date: 0 Discharge Status: Achieved Goals Improved Function Independent with HEP Discharge Summary: Pt was on 30 day hold. She has not reached out to be scheduled so will be d/c at this time. Electronically signed by: Jeanette Hogue, PT, DPT, ATC Please sign and return to therapist. Thank you for your referral.
== END 2023-03-30 10:10 | disposition home or self-care (01) ==
LOC: HO.PTCHIC 16:00
PROVIDERS: Visit Provider Orthopaedic Surgery
DX: S83.512A Sprain of anterior cruciate ligament of left knee, initial encounter (principal); Z98.890 Other specified postprocedural states
CPT/HCPCS: 97110; 97112; 97140; 97161; 97530

== ENCOUNTER 2023-03-29 09:14 | Outpatient (AMB) | payer OTHER, SELFPAY ==
--- NOTE | 2023-03-29 09:15 | MHC.OFFVIS ---
Intake Vital Signs 03/29/23 09:16 Height 5 ft 2 in Weight 170 lb BMI 31.1 Intake Visit Reasons: OV-LT knee pain-DOI 09/25/22-F/U Intake Note: Lisbet is a 38 year old female who presents today for a follow up of her left knee. She is s/p left ACL repair, 03/15/22 NE and post operative injury on 09/25/22. 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 She is doing well and wihout complaints. 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 Review of Systems Const All systems reviewed & are unremarkable except as noted in HPI and below Physical Exam Vital Signs: BMI result Body Mass Index 31.1 Const General: no acute distress, alert and awake Orientation/consciousness: patient oriented x3 HEENT Head: Yes normocephalic and Yes atraumatic Eyes EOM: EOMs intact bilaterally Resp Effort & Inspection: normal respiratory effort and able to speak in complete sentences Cardio Jugular venous distension: no JVD Skin General skin exam: turgor normal Rashes: no rashes Neuro General: patient oriented x3 Extrem Other: stable lachmans full ROM no effusion Psych Appearance: grossly normal Affect: normal affect Attitude: cooperative Assessment & Plan Assessment & Plan (1) S/P ACL reconstruction: Code(s): Z98.890 - Other specified postprocedural states Plan: This is a 38 year old woman with improving left knee pain, after a fall on 09/25/22. She is S/P left ACL reconstruction, DOS: 03/15/22. She is doing well and may return to activity as tolerated. Coding Level of Care Code Est Pt Level 3 (19006) Diagnoses S/P ACL reconstruction Z98.890
[2023-03-29 09:16] VITALS: BMI 31.1
== END 2023-03-29 10:20 | disposition home or self-care (01) ==
PROVIDERS: Visit Provider Orthopaedic Surgery
DX: S83.512D Sprain of anterior cruciate ligament of left knee, subsequent encounter (principal)
CPT/HCPCS: 99213

== ENCOUNTER → 2023-03-29 09:14 | Outpatient (BNVA) | payer OTHER, SELFPAY | PROVIDERS: Visit Provider Orthopaedic Surgery | DX: M25.562 Pain in left knee (principal) | CPT/HCPCS: 99212 ==

== ENCOUNTER 2023-05-24 06:46 | Day surgery (SDC) | payer OTHER, SELFPAY ==
--- NOTE | 2023-05-23 09:32 | P.CONAN_ITS ---
Documented by User: Amy Franco NP 05/23/23 09:32 HPI - Anesthesia Eval Consult details Narrative: 38yo F for Upper Endoscopy PMFSH Active Problems Active Problems: All Active Problems (Updated 02/15/22 @ 16:22 by Tasneem Funk PA-C) S/P ACL reconstruction (Acute) Left ACL tear (Acute) Internal derangement of knee (Acute) Gastroparesis (Acute) Early satiety (Acute) Vitamin D deficiency (Acute) Upper abdominal pain (Acute) GERD with esophagitis (Acute) Past Medical History Medical History GERD (gastroesophageal reflux disease) Elevated lipase Family History Family history of problems with anesthesia: No Surgical History Surgical History History of repair of ACL H/O esophagogastroduodenoscopy S/P dilatation and curettage H/O section History of Problems with Anesthesia: No Social History Social History Alcohol intake: unknown Patient Tobacco Use Status: Current everyday Tobacco user Tobacco use type: Cigarette Cigarettes Per Day: 2 Use of substances other than those prescribed or required for medical reasons: Yes Substance Use Frequency: Socially Are you DNR?: No Advance Directives: No Advance Directives Information Provided: Yes Current occupational status: employed 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 Meds Allergies Allergy/AdvReac Type Severity Reaction Status Date / Time No Known Allergies Allergy Verified 05/24/23 06:50 [No Known Allergies*] Assessment and Plan Assessment Anesthesia Assessment: Chart Reviewed Final Anesthetic Review Family History of Problems with Anesthesia: No History of Problems with Anesthesia: No Documented by User: Mona Avitia MD 05/24/23 07:44 PMFSH Active Problems Active Problems: All Active Problems (Updated 05/24/23 @ 07:18 by Mona Avitia MD) S/P ACL reconstruction (Acute) Left ACL tear (Acute) Internal derangement of knee (Acute) Gastroparesis (Acute) Early satiety (Acute) Vitamin D deficiency (Acute) Upper abdominal pain (Acute) GERD with esophagitis (Acute) Past Medical History Medical History GERD (gastroesophageal reflux disease) Elevated lipase Surgical History Surgical History History of repair of ACL H/O esophagogastroduodenoscopy S/P dilatation and curettage H/O section Social History Social History Alcohol intake: unknown Patient Tobacco Use Status: Current everyday Tobacco user Tobacco use type: Cigarette Cigarettes Per Day: 2 Use of substances other than those prescribed or required for medical reasons: Yes Substance Use Frequency: Socially Are you DNR?: No Advance Directives: No Advance Directives Information Provided: Yes Current occupational status: employed 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 [employer] Allergies Allergy/AdvReac Type Severity Reaction Status Date / Time No Known Allergies Allergy Verified 05/24/23 06:50 [No Known Allergies*] Exam Height,Weight and Vital Signs: Height 5 ft 2 in Weight 85.275 kg Vital Signs Temp Pulse Resp BP Pulse Ox O2 Del Method 05/24/23 07:11 98.1 F 88 15 118/45 L 98 Room Air Pertinent Lab Results Pertinent Lab Results: Lab Results 05/24/23 Range/Units 06:50 Urine Test NEGATIVE (NEGATIVE) Airway Mallampati Class: II TM Dist: >3cm Neck ROM: Full Loose/Missing/Broken Teeth: No (Denies broken, loose, missing teeth ) Heart: RRR Lungs: CTAB Assessment and Plan Assessment Anesthesia Assessment: Anesthesia Plan Discussed Final Anesthetic Review NPO: Yes ASA Class: II Final Preanesthetic Review: No Changes in Pt Med Stat, Meds/Allgs Chart Reviewed, Consent Obtained/Reviewed and Anes Risks/Benef Reviewed Patient Risk: Low Procedure Risk: Low Assessment/Block/Sedation in SS: Assess/Block/Sedation-SS Anesthetic Plan Anesthetic Plan: MAC: Disposition: Standard PACU
[2023-05-24 06:56] VITALS: BMI 34.4
[2023-05-24 07:08] LABS: UPreg QC Valid YES; Urine Pregnancy NEGATIVE (NEGATIVE)
[2023-05-24 07:11] VITALS: BP 118/45; PULSE 88; RESP 15; TEMP 36.7; O2SAT 98
[2023-05-24] MEDS: Lactated Ringers 1,000 ML 100 ML IVCONT (07:15)
--- NOTE | 2023-05-24 07:33 | MHC.SHP ---
Pre-Procedural Eval Section A Date of Service: 05/24/23 Section B Chief Complaint: Gastro-esophageal reflux disease without esophagit Relevant Family History (Specify if Yes): No Relevant Social History: Tobacco Use Present Medications: see Short Stay Collaborative assessment Medical History: Significant History (gastroparesis, GERD) History of Previous Operations: Relevant previous surgery/procedure and date(s) (H/O section H/O esophagogastroduodenoscopy S/P dilatation and curettage) Allergies: Allergies Allergy/AdvReac Type Severity Reaction Status Date / Time No Known Allergies Allergy Verified 05/24/23 06:50 [No Known Allergies*] Review of Systems Sugical H&P ROS: Negative: Constitution, Cardiovascular, Respiratory, Neurological, Psychiatric, Hem-Onc, Allergic/Immunologic, Gastrointestinal, Genitourinary, Musculoskeletal, Integumentary, Endocrine and Eyes/Ears/Nose/Throat Exam Surgical H&P Exam: Normal: HEENT, Normal: Heart, Normal: Lungs, Normal: Extremities, Normal: Abdomen, Normal: Skin and Normal: Neurological Plan Diagnosis/Plan: Unchanged I have reviewed the history and physical and performed a pertinent physical examination on my patient. No changes have occurred unless specified. Time Spent With Patient Time: Total time managing care of this patient today ____ minutes.
--- NOTE | 2023-05-24 07:52 | W.PM.OPN ---
Operative Note Operative Note Date of Service: 05/24/23 Narrative: Procedure Description: EGD Indication: worsening GERD Anesthesia: MAC FLEXIBLE TRANSORAL UPPER GASTROINTESTINAL ENDOSCOPY UPPER ENDOSCOPY Consent: Indications for the procedure and potential complications of bleeding, perforation, reaction to medications and missed diagnosis were discussed with the patient and informed consent was obtained. Instrument: Olympus GIF H 190 J mid size upper endoscope Monitoring: Vital signs and clinical assessment, continuous EKG monitoring, Pulse oximetry, Carbon Dioxide monitoring and blood pressure monitoring were done throughout the procedure. Procedure: The patient was placed in the left lateral decubitis position and pre-procedure medications were administered and a bite block was placed. The endoscope was inserted into the mouth and advanced under direct vision to the third part of duodenum. A careful inspection was made as the upper endoscope was withdrawn including a retroflexed examination of the proximal stomach; Findings and interventions are described below. Findings: Larynx:normal Esophagus: GE junction at 35 cm, diaphragm hiatus at 39 cm, consistent with 4 cm sliding hiatal hernia, erosive esophagitis noted LA grade B, bx taken GEJ, distal and proximal areas--incompetent LES noted Stomach: Patchy gastric erythema. Biopsies were obtained. Grade 3 flap valve on retroflexed examination of the cardia. Retaine dfood noted, pylorus dilated with 20 mm balloon, wire guided, after that vigorous peristalsis noted. Duodenum: Normal bulb and descending duodenum, bx taken Intervention: Biopsies as noted above, wire guided balloon dilation Impression/Findings: erosive esophagitis hiatal hernia incompetent LES gastritis PLAN: PPi compliance lifestyle changes consider surgical referral fro fundoplication, hernia repair
[2023-05-24 08:00] VITALS: BP 109/61; PULSE 100; RESP 14; TEMP 36.6; O2SAT 98
[2023-05-24 08:15] VITALS: BP 104/61; PULSE 85; RESP 14; O2SAT 97
[2023-05-24 08:30] VITALS: BP 104/58; PULSE 83; RESP 13; O2SAT 98
[2023-05-24 08:45] VITALS: BP 104/59; PULSE 80; RESP 16; O2SAT 97
[2023-05-24 09:00] VITALS: BP 131/73; PULSE 86; RESP 16; TEMP 36.6; O2SAT 98
== END 2023-05-24 09:41 | disposition home or self-care (01) ==
PROVIDERS: Nurse Practitioner; Visit Provider Internal Medicine Gastroenterology
PROC: 0DJ08ZZ Inspection of Upper Intestinal Tract, Via Natural or Artificial Opening Endoscopic (ICD-10-PCS; CPT 43235; principal; 2023-05-24 07:30)
DX: K21.9 Gastro-esophageal reflux disease without esophagitis (principal); K20.80 Other esophagitis without bleeding; K31.84 Gastroparesis; K29.60 Other gastritis without bleeding; K22.0 Achalasia of cardia; K44.9 Diaphragmatic hernia without obstruction or gangrene; Z79.899 Other long term (current) drug therapy
CPT/HCPCS: 43245; 43239; 81025; 88305; 88342; C1726; J1100; J2250; J2704

== ENCOUNTER → 2023-05-24 06:46 | Outpatient (BNV) | payer OTHER, SELFPAY | PROVIDERS: Visit Provider Internal Medicine Gastroenterology | DX: K21.00 Gastro-esophageal reflux disease with esophagitis, without bleeding (principal); K29.70 Gastritis, unspecified, without bleeding | CPT/HCPCS: 43249 ==

== ENCOUNTER 2024-10-31 10:01 | Emergency (ER) | payer OTHER, SELFPAY ==
--- NOTE | 2024-10-31 | ECG_ITS ---
Test Reason : nausea Blood Pressure : */* mmHG Vent. Rate : 77 BPM Atrial Rate : 77 BPM P-R Int : 138 ms QRS Dur : 80 ms QT Int : 404 ms P-R-T Axes : 44 10 25 degrees QTcB Int : 457 ms Normal sinus rhythm Normal ECG No previous ECGs available Referred By: Generic ED Physician Electronically Signed By: COURT SHEFFIELD MD
--- NOTE | ~2024-10-31 | XR_ITS ---
EXAMINATION: XR CHEST CLINICAL INFORMATION: CP COMPARISON: None available. TECHNIQUE: 2 views of the chest were obtained. FINDINGS: The cardiac, hilar, and mediastinal contours are normal. The lungs are clear bilaterally. There is no pneumothorax or pleural effusion. There is no focal osseous or soft tissue abnormality. XR/XR chest 2V IMPRESSION: Normal chest. Electronically signed by: Parminder Hernandez MD 10/31/2024 03:26 PM EDT
--- NOTE | ~2024-10-31 | US_ITS ---
EXAMINATION: US ABDOMEN LIMITED CLINICAL INFORMATION: Right upper quadrant abdominal pain.. COMPARISON: None available. TECHNIQUE: Real-time imaging of the right upper quadrant abdominal viscera. FINDINGS: PANCREAS: Visualized portions are unremarkable. LIVER: The liver is normal in size. The liver contour is normal. The right hepatic lobe measures 15.1 cm in length. Parenchymal echogenicity is normal. No focal hepatic lesion. There is no intrahepatic biliary duct dilatation seen. GALLBLADDER: The gallbladder is physiologically distended without evidence of stones, sludge, polyps, wall thickening or pericholecystic fluid. Negative sonographic Holloway's sign. COMMON BILE DUCT: Normal in caliber measuring 0.3 cm in diameter. RIGHT KIDNEY: No hydronephrosis. No renal calculi or focal parenchymal lesions. The kidney measures 9.0 cm in maximum dimension. FREE FLUID: None. US/US abdomen limited IMPRESSION: Normal right upper quadrant abdominal ultrasound. Electronically signed by: Parminder Hernandez MD 10/31/2024 11:18 AM EDT
--- NOTE | ~2024-10-31 | CT_ITS ---
EXAMINATION: CT ABDOMEN PELVIS WITH IV CONTRAST HISTORY: RUQ pain COMPARISON: Correlation is made with an abdominal ultrasound dated 10/31/2024. TECHNIQUE: CT scan of the abdomen and pelvis was performed following administration of 85 mL Omnipaque 350 using standard departmental protocol. Coronal and sagittal reformatted images were generated and reviewed. Oral contrast material was not administered at the request of the referring physician. This CT exam was performed with one or more of the following dose reduction techniques: automated exposure control, adjustment of the mA and/or kV according to patient size, use of iterative reconstruction technique. DLP: 553 mGy-cm FINDINGS: LOWER CHEST: The visualized lung bases are clear. There is no pleural effusion. CARDIOVASCULATURE: The heart is normal in size. There is no pericardial effusion. LIVER: The liver is normal in size and contour. No liver mass is identified. The hepatic and portal veins are patent. GALLBLADDER / BILE DUCTS: The gallbladder is unremarkable. There is no intra or extrahepatic biliary ductal dilatation. SPLEEN: The spleen is normal in size. No focal splenic lesion is identified. PANCREAS: The pancreas is unremarkable in appearance. ADRENAL GLANDS: Within normal limits. KIDNEYS/RETROPERITONEUM: No renal calculi are identified. There is no hydronephrosis. No renal masses are identified. LYMPH NODES: No abdominal or pelvic lymphadenopathy. VASCULATURE: The abdominal aorta is normal in caliber. MESENTERY/PERITONEUM: No free fluid. No masses. There is no free intraperitoneal gas. STOMACH: There is a moderate to large hiatal hernia. The stomach is otherwise collapsed, limiting evaluation. SMALL BOWEL: The small bowel is normal in caliber. COLON: The colon is unremarkable. APPENDIX: Normal. URINARY BLADDER/PELVIC ORGANS: The urinary bladder is collapsed, limiting evaluation. The uterus is retroverted, but otherwise unremarkable in appearance. The ovaries are unremarkable. There is a follicle on the left. BONES / SOFT TISSUES: No suspicious bony or soft tissue abnormalities. CT/CT abdomen pelvis w IV con IMPRESSION: Moderate to large hiatal hernia. Otherwise unremarkable contrast-enhanced CT of the abdomen and pelvis. A normal appendix is visualized. Electronically signed by: Ashkan Lake MD 10/31/2024 02:26 PM EDT
[2024-10-31 10:11] VITALS: BP 114/87; PULSE 103; RESP 26; TEMP 36.6; O2SAT 100; BMI 30.2
--- NOTE | 2024-10-31 10:17 | ED_ITS ---
HPI - Abdominal Pain General Chief Complaint: Abdominal Pain Stated Complaint: Abd pain Time Seen by Provider: 10/31/24 10:17 Source: patient and RN notes reviewed Mode of arrival: ambulatory Limitations: no limitations History of Present Illness ED Provider: Jennifer Beckham PA-C HPI narrative: This is a 39-year-old female who presents emergency department with concerns for acute onset right upper quadrant pain which started while she was at work today. 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 She states that since yesterday she has had diarrhea. She states that this morning she has had nausea and vomiting. Denies history of similar symptoms in the past. No sick contacts. Denies chance of . She denies any fevers, chills, chest pain, shortness of breath, or urinary symptoms. Reports that she had a knee surgery, otherwise no other surgeries in the past. No other complaints or concerns at this time. MD elicited complaint: abdominal pain Onset (ago): day(s) Pain Consistency: constant Location: epigastric and RUQ Severity: severe Quality: stabbing and sharp Migration to: no migration Exacerbating factors: vomiting Relieving factors: nothing Associated symptoms: nausea, vomiting and diarrhea Related Data Previous Rx's ?Medication ?Instructions ?Recorded Cold Therapy Device #1 ea 11/09/22 esomeprazole magnesium 20 mg 20 mg PO BID #60 caps 07/25/24 capsule,delayed release acetaminophen 500 mg tablet 1,000 mg (2 x 500 mg) PO Q6H PRN 10/31/24 (Tylenol Extra Strength) pain #30 tabs ibuprofen 600 mg tablet 600 mg PO Q6H PRN pain #30 tabs 10/31/24 ondansetron HCl 4 mg tablet 4 mg PO Q6H PRN nausea and 10/31/24 vomiting #14 tabs Allergies Allergy/AdvReac Type Severity Reaction Status Date / Time No Known Allergies Allergy Verified 10/31/24 10:12 [No Known Allergies*] Review of Systems Review of Systems Constitutional: No Weight loss, No Fever, No Chills, No Night Sweats, No Fatigue, No Malaise ENT/Mouth: No Hearing loss, No Ear Pain, No Nasal Congestion, No Sinus Pain, No Hoarseness, No sore throat, No Rhinorrhea, No Swallowing Difficulty Eyes: No Eye Pain, No Swelling, No Redness, No Foreign Body, No Discharge, No Vision Changes Cardiovascular: No Chest Pain, No SOB, No Dyspnea on Exertion, No Orthopnea, No Edema, No Palpitations Respiratory: No Cough, No Sputum, No Wheezing, No Smoke Exposure, No Dyspnea Gastrointestinal: +Nausea, + Vomiting, No Diarrhea, No Constipation, + Abdominal pain, No Hematochezia, No Melena Genitourinary: No irregular bleeding, No Dysuria, No Urinary Frequency, No Hematuria, No Urinary Incontinence/retention, No Urgency, No Flank Pain, No Urinary Flow Changes, No Hesitancy Musculoskeletal: No joint pain, No Myalgias, No Joint Swelling Skin: No Skin Lesions, No rash Neuro: No Weakness, No Numbness, No Paresthesias, No Loss of Consciousness, No Dizziness, No Headache Psych: No Anxiety/Panic, No Depression, No SI/HI/AH/VH, No Social Issues, Heme/Lymph: No Bruising, No Bleeding,No Lymphadenopathy Endocrine: No Polyuria, No Polydipsia, No Temperature Intolerance Yes all other systems are reviewed and are negative Constitutional: Reports as per [facility] Past Medical History Medical History (Updated 10/31/24 @ 17:07 by HECTOR Murillo) Right upper quadrant pain GERD (gastroesophageal reflux disease) Elevated lipase Surgical History History of repair of ACL H/O esophagogastroduodenoscopy S/P dilatation and curettage H/O section Social History Social History Alcohol intake: unknown Patient Tobacco Use Status: Current everyday Tobacco user Tobacco use type: Cigarette Cigarettes Per Day: 2 Smoked in Last 30 Days: No Use of substances other than those prescribed or required for medical reasons: No Advance Directives: No Advance Directives Information Provided: No Do you have a plan to hurt others: No Plan Patient : No Current occupational status: employed 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 Physical Exam ED Vital Signs: Vital Signs - 24 hr 10/31/24 10:11 10/31/24 12:33 10/31/24 15:52 Temperature 98 F 97.6 F Pulse Rate 103 H 82 Respiratory Rate 26 H 14 16 Blood Pressure 114/87 124/66 Pulse Oximetry 100 100 Oxygen Delivery Method Room Air Room Air 05/30/25 18:05 Temperature 98.1 F Pulse Rate 70 Respiratory Rate 16 Blood Pressure 128/69 Pulse Oximetry 98 Oxygen Delivery Method Room Air BMI result Body Mass Index 30.2 Const General: cooperative, comfortable and no acute distress Orientation/consciousness: patient oriented x3 Limitations: no limitations HENMT Head: Yes normal to inspection, Yes normocephalic and Yes atraumatic Ears: hearing grossly normal bilaterally General nose exam: Normal external nose present Face and sinus: Yes normal facial exam Mouth: Normal oral and palatal mucosa present, oropharynx normal and moist mucous membranes Throat: Yes posterior oropharynx normal Eyes General: appearance normal, both eyes and all related structures Eyelids: Yes eyelids normal Conjunctivae: conjunctivae normal Sclerae: sclerae normal Pupils: Equal, round and reactive pupils present EOM: EOMs intact bilaterally Neck Neck: Yes normal visual inspection, Yes full ROM and Yes no lymphadenopathy Lymphatic: no lymphadenopathy noted Chest Chest palpation & inspection: normal inspection of the chest Resp Effort & Inspection: normal respiratory effort and able to speak in complete sentences Auscultation: clear to auscultation bilaterally, no crackles, no rales, no rhonchi and no wheezes Cardio Rate: regular rate Rhythm: regular rhythm Heart sounds: S1 normal heart sound present and S2 normal heart sound present GI Other: Abdomen is soft, with tenderness palpation in the right upper quadrant with guarding. Inspection: Yes normal to inspection Skin General skin exam: no rashes or lesions noted Trauma: no lacerations or abrasions Wounds: no wounds Neuro General: patient oriented x3 and moves all extremities Cranial nerves: Yes Equal, round and reactive pupils present Extrem General: Yes normal to inspection Right upper extremity: normal to inspection Left upper extremity: normal to inspection Right lower extremity: normal to inspection Left lower extremity: normal to inspection Medical Decision Making Medical Decision Making MDM Narrative: This is a 39-year-old female, with a past medical history of GERD, who presents emergency department with complaints of acute onset of right upper quadrant pain which started about 1 hour prior to arrival. On arrival, patient tachycardic at 103respirations 26, patient appears to be visibly uncomfortable secondary to right upper quadrant pain. No history of similar symptoms in the past. Differential diagnoses include acute cholecystitis, cholangitis, ACS-unlikely, gastritis, gastroenteritis. On examination, patient has tenderness palpation in the epigastrium and right upper quadrant, given this finding, gallbladder etiology is high on my differential. Will obtain labs, EKG, will medicate with IV Zofran, IV morphine, and administer prophylactic antibiotic, Rocephin. Will also obtain ultrasound to rule out gallbladder etiology. We will continue to closely monitor pending overall workup. Course: Labs returned, she has no leukocytosis, stable H&H, chemistry with no evidence of HAMMAD, she does have slight elevation in her AST, ALT within normal limits. Lipase normal. She is not . Patient re-evaluated, she appears to be more comfortable however still experiencing some pain. Will medicate with Tylenol. Will also order a D-dimer. She has no history of any blood clots in the past. She is not on anticoagulation. No recent travel, surgery, or hospitalizations but does report that she had some chest pain during this episode, pleuritic in nature. Suspicion is low however will obtain D-dimer. 1235 - D-dimer negative, patient re-evaluated, she did have another episode of nausea and vomiting therefore medicated with Reglan and Benadryl. Will obtain CT abdomen pelvis with IV contrast to rule out any acute abnormality. We will continue to closely monitor. 1600- CT scan revealing moderate to large hiatal hernia, otherwise unremarkable. 2nd Troponin flat. Discussed overall workup with patient, her workup today is reassuring. Patient overall is feeling much better. Chest x-ray was also obtained, no acute findings. I discussed this case with Dr. Reid, who came and assessed patient. Patient does have tenderness along her anterior ribs, this may be attributed to musculoskeletal like in origin. Will treat with ibuprofen, Tylenol, and Zofran. Given strict return precautions. She understands and agrees with plan. Patient stable for discharge. Differential Diagnosis Differential Diagnoses: The differential diagnosis associated with the presentation includes See above Admission/Observation Consideration of admission/observation: Escalation of care including admission/observation considered Consult Healthcare Provider Management of the patient was discussed with: Staffing Specialist Dr. Reid, general surgery Lab Data [facility] Lab Attestation statement: I reviewed the patient's lab results. See MDM and course 10/31/24 10:21 10/31/24 10:21 Labs: Lab Results 10/31/24 10/31/24 10/31/24 Range/Units 10:21 10:51 12:02 WBC 6.6 (4.8-10.8) X10*3/uL RBC 4.52 (4.20-5.50) X10*6/uL Hgb 12.8 (12.0-16.0) g/dl Hct 36.8 L (37.0-47.0) % MCV 81.4 (80.0-98.0) fL MCH 28.3 (27.0-33.0) pg MCHC 34.8 (31.0-35.0) g/dl RDW 13.8 (11.0-16.0) % Plt Count 350 (160-400) X10*3/uL MPV 10.0 (9.4-12.3) fL Immature Gran % (Auto) 0.3 (0.0-0.4) % Neut % (Auto) 60.9 (45-73) % Lymph % (Auto) 29.8 (20-40) % [place] % (Auto) 6.5 (2-11) % Eos % (Auto) 1.4 (0-4) % Baso % (Auto) 1.1 (0-2) % Lymph # (Auto) 2.0 (1.2-4.9) X10*3/uL [place] # (Auto) 0.4 (0.1-1.2) X10*3/uL Eos # (Auto) 0.1 (0.0-0.4) X10*3/uL Baso # (Auto) 0.1 (0.0-0.2) X10*3/uL Abs Immat Gran (auto) 0.02 (0.00-0.03) X10*3/uL Absolute Neuts (auto) 4.0 (2.0-8.3) x10*3/uL Absolute Nucleated RBC 0.000 (0.0-0.012) X10*3/uL Nucleated RBC % (auto) 0.0 (0.0-0.2) /100WBC D-Dimer High Sensitivty < 150 NG/ML Sodium 142 (135-145) mmol/L Potassium 4.4 (3.3-5.1) mmol/L Chloride 112 H (96-108) mmol/L Carbon Dioxide 20 L (22-29) mmol/L Anion Gap 14 (12-20) BUN 10 (9-16) mg/dL Creatinine 0.88 (0.5-1.4) mg/dL Estim Creat Clear Calc 82.0 Estimated GFR > 60 Random Glucose 96 (60-115) mg/dL Lactic Acid 1.9 (0.5-2.0) mmol/L Calcium 9.5 (8.4-10.2) mg/dL Magnesium 1.9 (1.6-2.6) mg/dL Total Bilirubin 0.3 (0.0-1.0) mg/dL AST 33 H (5-31) U/L ALT 21 (0-31) U/L Alkaline Phosphatase 69 (39-117) U/L Troponin I High Sens < 2.7 (<3.5-17.0) ng/L Total Protein 7.7 (6.5-8.0) g/dL Albumin 4.5 (3.5-5.0) g/dL Lipase 28 (8-78) U/L Beta HCG, Quant < 2 mIU/mL Urine Color Urine Appearance Urine pH (5.0-9.0) Ur Specific [place] (1.005-1.025) Urine Protein (Neg-Trace) mg/dL Urine Glucose (UA) (Negative) mg/dL Urine Ketones (Negative) mg/dL Urine Blood (Negative) Urine Nitrite (Negative) Ur Leukocyte Esterase (Negative) Urine RBC (0-2) /HPF Urine WBC (0-5) /HPF Ur Squamous Epith Cells (0-2) /HPF Urine Bacteria (None Seen) Hyaline Casts (0-2) /LPF Influenza Type A (PCR) (Negative) Influenza Type B (PCR) (Negative) RSV RNA Qual (PCR) (Negative) SARS-CoV-2 RNA (RT-PCR) (Negative) 10/31/24 10/31/24 10/31/24 Range/Units 12:22 15:43 16:36 WBC (4.8-10.8) X10*3/uL RBC (4.20-5.50) X10*6/uL Hgb (12.0-16.0) g/dl Hct (37.0-47.0) % MCV (80.0-98.0) fL MCH (27.0-33.0) pg MCHC (31.0-35.0) g/dl RDW (11.0-16.0) % Plt Count (160-400) X10*3/uL MPV (9.4-12.3) fL Immature Gran % (Auto) (0.0-0.4) % Neut % (Auto) (45-73) % Lymph % (Auto) (20-40) % [place] % (Auto) (2-11) % Eos % (Auto) (0-4) % Baso % (Auto) (0-2) % Lymph # (Auto) (1.2-4.9) X10*3/uL [place] # (Auto) (0.1-1.2) X10*3/uL Eos # (Auto) (0.0-0.4) X10*3/uL Baso # (Auto) (0.0-0.2) X10*3/uL Abs Immat Gran (auto) (0.00-0.03) X10*3/uL Absolute Neuts (auto) (2.0-8.3) x10*3/uL Absolute Nucleated RBC (0.0-0.012) X10*3/uL Nucleated RBC % (auto) (0.0-0.2) /100WBC D-Dimer High Sensitivty NG/ML Sodium (135-145) mmol/L Potassium (3.3-5.1) mmol/L Chloride (96-108) mmol/L Carbon Dioxide (22-29) mmol/L Anion Gap (12-20) BUN (9-16) mg/dL Creatinine (0.5-1.4) mg/dL Estim Creat Clear Calc Estimated GFR Random Glucose (60-115) mg/dL Lactic Acid (0.5-2.0) mmol/L Calcium (8.4-10.2) mg/dL Magnesium (1.6-2.6) mg/dL Total Bilirubin (0.0-1.0) mg/dL AST (5-31) U/L ALT (0-31) U/L Alkaline Phosphatase (39-117) U/L Troponin I High Sens 3.9 (<3.5-17.0) ng/L Total Protein (6.5-8.0) g/dL Albumin (3.5-5.0) g/dL Lipase (8-78) U/L Beta HCG, Quant mIU/mL Urine Color Yellow Urine Appearance Clear Urine pH 6.5 (5.0-9.0) Ur Specific [place] >= 1.030 H (1.005-1.025) Urine Protein Negative (Neg-Trace) mg/dL Urine Glucose (UA) Negative (Negative) mg/dL Urine Ketones Negative (Negative) mg/dL Urine Blood Negative (Negative) Urine Nitrite Negative (Negative) Ur Leukocyte Esterase Negative (Negative) Urine RBC 0-2 (0-2) /HPF Urine WBC 0-5 (0-5) /HPF Ur Squamous Epith Cells 0-2 (0-2) /HPF Urine Bacteria Trace (None Seen) Hyaline Casts 0-2 (0-2) /LPF Influenza Type A (PCR) NEGATIVE (Negative) Influenza Type B (PCR) NEGATIVE (Negative) RSV RNA Qual (PCR) NEGATIVE (Negative) SARS-CoV-2 RNA (RT-PCR) NEGATIVE (Negative) Independent Interpretation I performed an independent interpretation of an: EKG Interpretation: EKG normal sinus rhythm at a ventricular rate of 77 beats per minute, ME interval 138, QT QTC 404/457, no STEMI. Radiology Impression Discussion of test interpretation with radiology: I have reviewed the radiologist's reading. Radiologist Impression: COMPARISON: None available. TECHNIQUE: 2 views of the chest were obtained. FINDINGS: The cardiac, hilar, and mediastinal contours are normal. The lungs are clear bilaterally. There is no pneumothorax or pleural effusion. There is no focal osseous or soft tissue abnormality. XR/XR chest 2V IMPRESSION: Normal chest. Electronically signed by: Parminder Hernandez MD 10/31/2024 03:26 PM EDT FINDINGS: LOWER CHEST: The visualized lung bases are clear. There is no pleural effusion. CARDIOVASCULATURE: The heart is normal in size. There is no pericardial effusion. LIVER: The liver is normal in size and contour. No liver mass is identified. The hepatic and portal veins are patent. GALLBLADDER / BILE DUCTS: The gallbladder is unremarkable. There is no intra or extrahepatic biliary ductal dilatation. SPLEEN: The spleen is normal in size. No focal splenic lesion is identified. PANCREAS: The pancreas is unremarkable in appearance. ADRENAL GLANDS: Within normal limits. KIDNEYS/RETROPERITONEUM: No renal calculi are identified. There is no hydronephrosis. No renal masses are identified. LYMPH NODES: No abdominal or pelvic lymphadenopathy. VASCULATURE: The abdominal aorta is normal in caliber. MESENTERY/PERITONEUM: No free fluid. No masses. There is no free intraperitoneal gas. STOMACH: There is a moderate to large hiatal hernia. The stomach is otherwise collapsed, limiting evaluation. SMALL BOWEL: The small bowel is normal in caliber. COLON: The colon is unremarkable. APPENDIX: Normal. URINARY BLADDER/PELVIC ORGANS: The urinary bladder is collapsed, limiting evaluation. The uterus is retroverted, but otherwise unremarkable in appearance. The ovaries are unremarkable. There is a follicle on the left. BONES / SOFT TISSUES: No suspicious bony or soft tissue abnormalities. CT/CT abdomen pelvis w IV con IMPRESSION: Moderate to large hiatal hernia. Otherwise unremarkable contrast-enhanced CT of the abdomen and pelvis. A normal appendix is visualized. Electronically signed by: Ashkan Lake MD 10/31/2024 02:26 PM EDT Dictated By: Ashkan Lake MD Medications Administered Discontinued Medications Generic Name Dose Route Start Last Admin Trade Name Freq PRN Reason Stop Dose Admin Ceftriaxone Sodium 1 gm 10/31/24 10:26 10/31/24 12:17 Ceftriaxone Sodium 1 Gm Vial IVPUSH 10/31/24 10:27 1 gm ONCE ONE Administration Diphenhydramine HCl 12.5 mg 10/31/24 12:05 10/31/24 12:25 Diphenhydramine Hcl 50 Mg/Ml Vial IVPUSH 10/31/24 12:06 12.5 mg ONCE ONE Administration Sodium Chloride 1,503 mls @ 1,503 mls/hr 10/31/24 10:24 10/31/24 13:11 Ns IV 10/31/24 11:23 Infused .Q1H STA Infusion Acetaminophen 1,000 mg in 100 mls @ 400 mls/hr 10/31/24 11:31 10/31/24 13:11 Ofirmev IV 10/31/24 11:45 Infused ONCE ONE Infusion Metoclopramide HCl 10 mg 10/31/24 12:05 10/31/24 12:25 Metoclopramide Hcl 10 Mg/2 Ml Vial IVPUSH 10/31/24 12:06 10 mg ONCE ONE Administration Morphine Sulfate 4 mg 10/31/24 10:23 10/31/24 10:48 Morphine Sulfate 4 Mg/Ml Cartridge IVPUSH 10/31/24 10:24 4 mg ONCE ONE Administration Protocol Ondansetron HCl 4 mg 10/31/24 10:14 10/31/24 10:48 Ondansetron Hcl 4 Mg/2 Ml Vial IVPUSH 10/31/24 10:15 4 mg ONCE ONE Administration Discharge Plan Discharge Clinical Impression: Abdominal pain Patient Disposition: Home, Self-Care Instructions: Abdominal Pain (ED) Additional Instructions: You were seen in the emergency department due to abdominal pain. Your workup today was reassuring. Your CT scan does show a moderate to large hiatal hernia otherwise it is unclear what is causing you to have this pain. You may also follow-up with the surgeons to discussed possible surgical interventions to fix the hiatal hernia. This may be musculoskeletal. Please take ibuprofen and or Tylenol as needed for pain and symptoms. Zofran can help with nausea. If any new or worsening symptoms occur including but not limited to worsening pain, shortness of breath, chest pain, please seek emergent care. Prescriptions: New acetaminophen [Tylenol Extra Strength] 500 mg tablet 1,000 mg PO Q6H PRN (Reason: pain) Qty: 30 0RF ibuprofen 600 mg tablet 600 mg PO Q6H PRN (Reason: pain) Qty: 30 0RF ondansetron HCl 4 mg tablet 4 mg PO Q6H PRN (Reason: nausea and vomiting) Qty: 14 0RF No Action esomeprazole magnesium 20 mg capsule,delayed release(DR/EC) 20 mg PO BID Qty: 60 4RF (DME) Cold Therapy Device See Rx Instructions .Route .MEDSUPPLY Qty: 1 0RF Rx Instructions: Breg Polar Care Wave with Cold Compression Knee Pad Stand Alone Forms: Work/School Release Interventions: ED Discharge Assessment Last Done: 10/31/24 18:05 Discharge Date/Time: 10/31/24 18:12 Print Language: Occitan
[2024-10-31 10:29] LABS: MANUAL DIFF FLAG NO
[2024-10-31 10:34] LABS: Basophils Absolute Auto 0.1 X10*3/uL (0.0-0.2); Basophils Percent Auto 1.1 % (0-2); Eosinophils Absolute Auto 0.1 X10*3/uL (0.0-0.4); Eosinophils Percent Auto 1.4 % (0-4); Hematocrit 36.8 % (37.0-47.0); Hemoglobin 12.8 g/dl (12.0-16.0); Imm Gran Abs Auto 0.02 X10*3/uL (0.00-0.03); Imm Gran Pct Auto 0.3 % (0.0-0.4); Lymphocytes Percent Auto 29.8 % (20-40); Mean Corpuscular HGB Conc 34.8 g/dl (31.0-35.0); Mean Corpuscular Hemoglobin 28.3 pg (27.0-33.0); Mean Corpuscular Volume 81.4 fL (80.0-98.0); Monocytes Absolute Auto 0.4 X10*3/uL (0.1-1.2); Monocytes Percent Auto 6.5 % (2-11); Neutrophils Percent Auto 60.9 % (45-73); Platelet Count 350 X10*3/uL (160-400); Red Blood Count 4.52 X10*6/uL (4.20-5.50); Red Cell Distribution Width 13.8 % (11.0-16.0); White Blood Count 6.6 X10*3/uL (4.8-10.8)
[2024-10-31] MEDS: ondansetron HCL 4 MG/2 ML VIAL IVPUSH (10:48)
[2024-10-31] MEDS: Morphine Sulfate 4 MG/ML CARTRIDGE IVPUSH (10:48)
[2024-10-31 11:00] LABS: Alanine Aminotransferase 21 U/L (0-31); Albumin Level 4.5 g/dL (3.5-5.0); Alkaline Phosphatase 69 U/L (39-117); Anion Gap 14 (12-20); Aspartate Amino Transferase 33 U/L (5-31); Bilirubin Total 0.3 mg/dL (0.0-1.0); Blood Urea Nitrogen 10 mg/dL (9-16); Calcium 9.5 mg/dL (8.4-10.2); Carbon Dioxide 20 mmol/L (22-29); Chloride 112 mmol/L (96-108); Estimated Glomerular Filt Rate > 60; Glucose Random 96 mg/dL (60-115); HCG Quantitative < 2 mIU/mL; Lipase 28 U/L (8-78); Magnesium 1.9 mg/dL (1.6-2.6); Potassium 4.4 mmol/L (3.3-5.1); Sodium 142 mmol/L (135-145); Total Protein 7.7 g/dL (6.5-8.0)
[2024-10-31 11:02] LABS: Troponin-I High Sensitivity < 2.7 ng/L (<3.5-17.0)
[2024-10-31 11:19] LABS: Lactic Acid 1.9 mmol/L (0.5-2.0)
[2024-10-31] MEDS: cefTRIAXone sodium 1 GM VIAL IVPUSH (12:17)
[2024-10-31] MEDS: diphenhydrAMINE HCL 50 MG/ML VIAL 12.5 MG IVPUSH (12:25)
[2024-10-31] MEDS: Metoclopramide HCl 10 MG/2 ML VIAL IVPUSH (12:25)
[2024-10-31] MEDS: Acetaminophen 1,000 MG/100 ML PIGGYBACK 400 MG IV (12:25)
[2024-10-31 12:29] LABS: D Dimer High Sensitivity < 150 NG/ML
[2024-10-31 12:33] VITALS: RESP 14
[2024-10-31 13:05] LABS: Influenza A PCR NEGATIVE (Negative); Influenza B PCR NEGATIVE (Negative); Resp Syncy Virus RNA Qual PCR NEGATIVE (Negative); SARS COV2 PCR INHOUSE NEGATIVE (Negative)
[2024-10-31 15:52] VITALS: BP 124/66; PULSE 82; RESP 16; TEMP 36.4; O2SAT 100
[2024-10-31 16:16] LABS: Troponin-I High Sensitivity 3.9 ng/L (<3.5-17.0)
--- NOTE | 2024-10-31 16:45 | PM.CNGS ---
History of Present Illness Consult details Consult date: 10/31/24 Narrative: 39-year-old female referred to me for right upper quadrant pain. 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 She could barely walk at that time because of the severe pain and tenderness and she was brought to emergency room She had an ultrasound and CAT scan down which were unremarkable She denied any fever.. She denied any nausea or vomiting. She denies any GI complaints. Currently she says her pain is much improved. She states that she realizes her tenderness is actually on the lower ribs. Review of Systems Constitutional: Constitutional: Denies chills and Denies fever(s) Cardiovascular: Cardiovascular: Denies chest pain, Denies dyspnea and Denies dyspnea on exertion Respiratory: Respiratory: Denies cough, Denies dyspnea and Denies dyspnea on exertion Gastrointestinal: Gastrointestinal: Denies hematochezia and Denies change in bowel habits Genitourinary: Genitourinary: Denies hematuria Musculoskeletal: Musculoskeletal: Denies back pain and Denies limited range of motion Neurologic: Denies focal weakness and Denies convulsions Psychiatric: Psychiatric: Denies depression and Denies mood swings [facility] Past Medical History Medical History (Updated 11/01/24 @ 00:01 by Background Dakendallon) Right upper quadrant pain GERD (gastroesophageal reflux disease) Elevated lipase Surgical History Surgical History History of repair of ACL H/O esophagogastroduodenoscopy S/P dilatation and curettage H/O section Social History Social History Alcohol intake: unknown Patient Tobacco Use Status: Current everyday Tobacco user Tobacco use type: Cigarette Cigarettes Per Day: 2 Smoked in Last 30 Days: No Use of substances other than those prescribed or required for medical reasons: No Advance Directives: No Advance Directives Information Provided: No Do you have a plan to hurt others: No Plan Patient : No Current occupational status: employed 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 [employer] Allergies Allergy/AdvReac Type Severity Reaction Status Date / Time No Known Allergies Allergy Verified 10/31/24 10:12 [No Known Allergies*] Physical Exam Vital Signs: Vital Signs: Last Vital Signs Temp 97.6 F 10/31/24 15:52 Pulse 82 10/31/24 15:52 Resp 16 10/31/24 15:52 BP 124/66 10/31/24 15:52 Pulse Ox 100 10/31/24 15:52 O2 Del Method Room Air 10/31/24 15:52 BMI result Body Mass Index 30.2 Const: Other: Looks well General: comfortable and no acute distress Chest: Other: Has significant point tenderness along the lower most right ribs anteriorly and laterally Resp: Effort & Inspection: normal respiratory effort Cardio: Rate: regular rate GI: Other: No Holloway's sign Palpation (GI): Soft to palpation, not firm, nontender and no guarding Results Labs 10/31/24 10:21 10/31/24 10:21 Labs: Abnormal lab results 10/31/24 Range/Units 10:21 Hct 36.8 L (37.0-47.0) % Chloride 112 H (96-108) mmol/L Carbon Dioxide 20 L (22-29) mmol/L AST 33 H (5-31) U/L Short CBC 10/31/24 Range/Units 10:21 WBC 6.6 (4.8-10.8) X10*3/uL Hgb 12.8 (12.0-16.0) g/dl Hct 36.8 L (37.0-47.0) % Plt Count 350 (160-400) X10*3/uL BMP 10/31/24 10:21 Sodium 142 Potassium 4.4 Chloride 112 H Carbon Dioxide 20 L BUN 10 Creatinine 0.88 Calcium 9.5 Liver Function 10/31/24 Range/Units 10:21 Total Bilirubin 0.3 (0.0-1.0) mg/dL AST 33 H (5-31) U/L ALT 21 (0-31) U/L Alkaline Phosphatase 69 (39-117) U/L Albumin 4.5 (3.5-5.0) g/dL All other labs normal. Assessment and Plan (1) Right upper quadrant pain: Status: Acute She had severe upper quadrant pain today. I have reviewed her imaging studies including her CAT scan and ultrasound and there is no intra-abdominal pathology identifiable. She has no gallstones and there is no inflammatory process right upper quadrant. Current exam actually points to significant point tenderness in the lower most right ribs anteriorly as well as laterally. This is suggestive more of costochondritis or musculoskeletal pathology. She does not seem to be tender on the abdomen itself and she has no Holloway's sign. She has no leukocytosis She looks well overall and actually appears comfortable. I do not see any indication for any surgical intervention currently. She may be had on some NSAIDs for her pain. I explained to her the plan and she is comfortable. The above was discussed with the ED staff as well. Procedures Date of Service Date of Service: 11/03/24
[2024-10-31 17:29] LABS: Appearance Urine Clear; Color Urine Yellow; Glucose Urine UA Negative (Negative); Leukocyte Esterase Urine Negative (Negative); Nitrite Urine Negative (Negative); PH 6.5 (5.0-9.0); Specific Gravity - Urine >= 1.030 (1.005-1.025); Urine Blood Negative (Negative); Urine Ketones Negative (Negative); Urine Protein Negative (Neg-Trace)
[2024-10-31 17:32] LABS: Bacteria Urine Trace (None Seen); Hyaline Casts Urine 0-2 /LPF (0-2); RBC Urine 0-2 /HPF (0-2); Squamous Epithelial Cell Urine 0-2 /HPF (0-2); WBC Urine 0-5 /HPF (0-5)
[2024-10-31 18:05] VITALS: BP 128/69; PULSE 70; RESP 16; TEMP 36.7; O2SAT 98
== END 2024-10-31 18:12 | disposition home or self-care (01) ==
PROVIDERS: Physician Assistant Medical; Emergency Provider Emergency Medicine Emergency Medical Services
DX: R10.11 Right upper quadrant pain (principal); K44.9 Diaphragmatic hernia without obstruction or gangrene; K21.9 Gastro-esophageal reflux disease without esophagitis; R11.2 Nausea with vomiting, unspecified; Z03.818 Encounter for observation for suspected exposure to other biological agents ruled out
CPT/HCPCS: 0241U; 36415; 71046; 74177; 76705; 80053; 81001; 83605; 83690; 83735; 84484; 84702; 85025; 85379; 87040; 93005; 96361; 96374; 96375; 99285; J0131; J0696; J1200; J2270; J2405; J2765

== ENCOUNTER → 2024-10-31 10:24 | Outpatient (BNV) | payer OTHER, SELFPAY | PROVIDERS: Emergency Provider Emergency Medicine Emergency Medical Services; Visit Provider Radiology Diagnostic Radiology | DX: K44.9 Diaphragmatic hernia without obstruction or gangrene (principal); R10.11 Right upper quadrant pain; R07.9 Chest pain, unspecified | CPT/HCPCS: 71046; 74177; 76705 ==

== ENCOUNTER → 2024-10-31 10:27 | Outpatient (BNV) | payer OTHER, SELFPAY | PROVIDERS: Emergency Provider Emergency Medicine Emergency Medical Services; Visit Provider Surgery | DX: R10.11 Right upper quadrant pain (principal) | CPT/HCPCS: 99283 ==

== ENCOUNTER → 2024-10-31 10:44 | Outpatient (BNV) | payer OTHER, SELFPAY | PROVIDERS: Emergency Provider Emergency Medicine Emergency Medical Services; Visit Provider Internal Medicine Cardiovascular Disease | DX: R11.0 Nausea (principal) | CPT/HCPCS: 93010 ==

== ENCOUNTER 2024-11-19 10:58 | Outpatient (AMB) | payer OTHER, SELFPAY ==
--- NOTE | 2024-11-19 11:02 | MHC.OFFVISWM ---
VS Expanded 11/19/24 11:16 BP 118/63 Blood Pressure Location Rt brachial Blood Pressure Position Sitting Pulse 79 Pulse Source Pulse Oximeter Temp 97.4 F Temperature Source Temporal Artery Scan Pulse Oximetry 79 L Oxygen Delivery Method Room Air Height 5 ft 2 in Weight 188 lb BMI 34.4 Body Fat % 37.7 Body Fat Mass 70.8 Fat Free Mass 117.0 Visceral Fat Rating 8.0 Body Water % 4.6 Body Water Mass 83.8 Muscle Mass/Score 111.2 Basal Metabolic Rate/Score 1,616 Intake Visit Reasons: OV Hiatal Hernia - Dr. Avendano Ref. Allergies No Known Allergies (No Known Allergies*) Allergy (Verified 11/19/24 11:10) Medication List - Last Reconciled 11/19/24 by Donny Holliday MD [Cold Therapy Device MicroInvention Vital Metrix with Cold Compression Knee Pad] esomeprazole magnesium 20 mg PO BID ibuprofen 600 mg PO Q6H PRN HPI Comments Details: Has been complaining of persistent GERD and chest pain despite continuous use of Nexium Tests reviewed: 1) CT abdomen/pelvis (10/2024: large type III paraesophageal hernia) 2) Abdominal US (10/2024: normal liver size, no gallstones) 3) CXR (10/2024: normal) 4) EKG (10/2024: NSR) 5) EGD (2022: 4cm hiatal hernia with esophagitis, H pylori negative) 6) Gastric emptying study (2020: abnormal) [facility] Medical History (Updated 11/19/24 @ 11:54 by Donny Holliday MD) Right upper quadrant pain GERD (gastroesophageal reflux disease) Elevated lipase Surgical History History of repair of ACL H/O esophagogastroduodenoscopy S/P dilatation and curettage H/O section Family History (Updated 11/19/24 @ 11:09 by Keyanna Wallace CMA) Mother Diabetes Father No problems noted. 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 We discussed the potential etiology of the hernia that could be worsened by her weight. We discussed the details of the diaphragmatic hernia repair and the potential technical challenges such as being able to achieve enough mobilization of the esophagus back in the abdomen and being able to close the diaphragmatic muscle (crura) primarily with sutures. We also discussed the possibility of using a biologic mesh to close the hernia defect if the crura cannot be adequately re-approximated primarily with sutures. We also discussed the option of doing a gastropexy or a fundoplication to prevent postoperative reflux and prevent hernia recurrence. As we discussed, I favor the gastropexy as the fundoplication can cause several distrurbing symptoms such as gas-bloating, flatulence, inability to burp which can be bothersome to patients. Also we discussed the complexity of a potential hernia recurrence in association with a hernia recurrence. She was in agreement not to have a fundoplication. We also discussed that after surgery, she will need to be on a liquid diet with protein shakes the first week. The second week will add protein bars and soft foods and after the third week we will introduce small amounts of regular food. The transition to normal eating habits will take about 6 weeks which is the time required for the repair to heal completely. 2. Nutritional counseling. Start with one CELEBRATE REBUILD protein (buy at hospital's [employer] [facility]) shake (HALF scoop EACH in 8oz low fat unsweetened almond milk each) at 6am-8am, two protein bars (CELEBRATE protein bars, buy at [facility] [employer] [facility]) at 9am-11am and 12pm-2pm, another CELEBRATE REBUILD protein shake (HALF scoop EACH in 8oz low fat unsweetened almond milk each) at 3pm-5pm and dinner at 6pm (8 forks of protein and 8 forks of salad/vegetables). So you do 2 protein shakes, 2 protein bars and one meal per day. Meal to include lean meat (beef, fish, pork, turkey, chicken), or malay yogurt, or egg whites, or beans with a salad with olive oil and fruits (berries, pears, apples, kiwi). Avoid salt, breads, potatoes, rice, pasta, desserts. 3. Each shake would be drunk slowly, like coffee in a period of 2 hours. 4. Cut each bar in 4 pieces and eat each piece in 30min ?to make each bar last 2 hours. 5. I emphasized the importance of measuring accurately the food portion and measure it when serving the food in plate 6. The meal portions include 8 full-size forks of meat and 8 full-size forks of salad. You always eat the meat portion but you can replace up to 4 forks for salad/vegetables with rice, potatoes or pasta, or a fruit ?if you like. The less you do it the better weight loss will be. 7. One full-size fork is what it can be scooped on the fork without falling aside and not what can be bit with the fork. Use regular forks like those you find in a typical restaurant. 8.? Please buy the body composition scale we discussed and send me weight measurements as soon as possible and then once a week. Always include your diet and exercise plan. 9. Start treadmill with an incline of 4.0 and speed of 2.0. Increase incline by 1 every 3 min to a max incline of 10.0, stay 3min at 10.0 and then return to 4.0 and repeat same steps until calorie goal is met. Goal is to burn 2000 calories per week on exercise, which means either 300 calories daily. 10.?It is important of avoiding and for at least 18 months postoperatively and has been discussed at the infosession. 11. Goal is to lose at least 1.5-2lbs per week 12. Goal to lose 10% of your weight before surgery, which is about 18lbs. Ultimate weight goal: 170lbs before surgery 13. Please follow the diet plan exactly without any change. If you don't like something about the plan or you feel hungry you need to communicate with me so I can help you revise the plan. You should not change the plan yourself B) PREOPERATIVE INSTRUCTIONS: 1. Preop prescriptions were provided and explained the purpose of each one. Need to be purchased preop. Pantoprazole, Sucralfate and Zofran are for after surgery as needed. 3. Bowel prep: please do 7 packets ?of Miralax mixing each one with a an 8oz glass of water, crystal light, gatorade zero, or propel ?on 11/30/24 and the same amount on 12/01/24. The Miralax you begin with one packet at a time in 8oz water or crystal light, gatorade zero, or propel ?as early in the day as you can and you do them back to back until you finish them. Continue the protein shakes during ?the bowel prep. 4. Needs to purchase 1oz medicine cups . 5. Needs to purchase Children's liquid Tylenol for postop pain control. 6. She needs to stop the Ibuprofen as of 11/23/24. Avoid aspirin, motrin, Advil, Aleve, Meloxicam, Excedrin, Ibuprofen, Naproxyn. Tylenol is OK. 7. She needs to purchase the Celebrate REBUILD protein shakes and the Celebrate protein bars 8. Will do basic preop blood work-up any day between Sunday11/24/24 and Sunday11/28/24 fasting for 12 hours and is scheduled to see the Anesthesiologist prior to the day of surgery. 9. Importance of adherence to postop folllow-up and recommendations was underscored and she understands that. 10. Stop food and bars as of Sunday11/29/24 and continue with 4 Celebrate REBUILD protein shakes (ONE scoop EACH in 8oz almond milk) at 6am-8am, 9am-11am, 12pm-2pm and 3pm-5pm and one more Celebrate REBUILD protein shake with TWO scoops in 8oz of almond milk at 6pm-8pm. 11. No soups, broths or V8 12. The patient's?medical?history has been reviewed and they are considered low risk for post op DVT and therefore DVT prophylaxis is not considered necessary. Travel after surgery was reviewed. The patient has not disclosed any travel plans during the first 30 days after surgery and they have been advised that within the first 30 days after surgery any bus, plane, train or car travel over 2 hours in duration is contraindicated due to the possibility of developing blood clots from immobility. Any travel, needs to include periods of ambulation of 10 minutes in duration every 2 hours.? Patient was instructed to discuss any plans for travel during this period with their bariatric surgeon.? 13. Please take at the day of surgery the following medications: NONE 14. Stop any control pills and don't use them for one month after surgery 15. Absolutely no smoking or vaping, or marijuana until the surgery and for at least the first 4 weeks. Only nicotine patches are allowed. 16. Send me weight measurements on the day of surgery before you go to the hospital. 17. Avoid any steroids by mouth for any reason. Let me know if someone prescribes them to you Orders: Orders Comprehensive Met. Panel Today Z01.818 - Encounter for other preprocedural examination Prothrombin Time INR Today Z01.818 - Encounter for other preprocedural examination Complete Blood Count Auto Diff Today Z01.818 - Encounter for other preprocedural examination TSH reflex Free T4 Today Z01.818 - Encounter for other preprocedural examination Partial Thromboplastin Time Today Z01.818 - Encounter for other preprocedural examination Type and Screen Today Z01.818 - Encounter for other preprocedural examination Hemoglobin A1c Today Z01.818 - Encounter for other preprocedural examination Medications: New ondansetron Only take one every 12 hours as needed if you have nausea 4 mg PO Q12H 20 tabs 0RF nausea and vomiting R11.0 - Nausea sucralfate 10 mL PO BID 600 mL 2RF K21.00 - Gastro-esophageal reflux disease with esophagitis, without bleeding polyethylene glycol 3350 Mix each measuring cup with 8oz of water, Crystal light, or Gatorade zero, or Propel and do 7 measuring cups on 11/30/24 and another 7 measuring cups on 12/01/24 17 grams PO DAILY 238 grams 0RF Z01.818 - Encounter for other preprocedural examination
[2024-11-19 11:16] VITALS: BP 118/63; PULSE 79; TEMP 36.3; O2SAT 79; BMI 34.4
== END 2024-11-19 12:11 | disposition home or self-care (01) ==
LOC: HO.HBS 10:58
PROVIDERS: Visit Provider Surgery
DX: K44.9 Diaphragmatic hernia without obstruction or gangrene (principal); K21.9 Gastro-esophageal reflux disease without esophagitis
CPT/HCPCS: 99204

== ENCOUNTER 2024-12-03 06:10 | Inpatient (IN) | payer OTHER, SELFPAY ==
[2024-11-21 09:49] LABS: MANUAL DIFF FLAG NO
[2024-11-21 10:20] LABS: Hematocrit 37.3 % (37.0-47.0); Hemoglobin 12.6 g/dl (12.0-16.0); Imm Gran Abs Auto 0.01 X10*3/uL (0.00-0.03); Imm Gran Pct Auto 0.2 % (0.0-0.4); Lymphocytes Absolute Auto 2.0 X10*3/uL (1.2-4.9); Mean Corpuscular HGB Conc 33.8 g/dl (31.0-35.0); Mean Corpuscular Hemoglobin 28.0 pg (27.0-33.0); Mean Corpuscular Volume 82.9 fL (80.0-98.0); NRBC Abs Auto 0.000 X10*3/uL (0.0-0.012); NRBC Pct Auto 0.0 /100WBC (0.0-0.2); Platelet Count 289 X10*3/uL (160-400); Red Blood Count 4.50 X10*6/uL (4.20-5.50); White Blood Count 5.4 X10*3/uL (4.8-10.8)
[2024-11-21 10:26] LABS: INTERNATIONAL NORM RATIO 0.9 (0.9-1.1); Prothrombin Time 10.7 SEC (10.9-12.4)
[2024-11-21 10:29] LABS: Partial Thromboplastin Time 27.8 SEC (26.0-36.8)
[2024-11-21 10:48] LABS: Hemoglobin A1C 129.1614 umol/L; Total Hemoglobin (HGBA1C) 3562.7684 umol/L
[2024-11-21 11:03] LABS: Alanine Aminotransferase 18 U/L (0-31); Albumin Level 4.3 g/dL (3.5-5.0); Alkaline Phosphatase 66 U/L (39-117); Anion Gap 12 (12-20); Aspartate Amino Transferase 21 U/L (5-31); Blood Urea Nitrogen 12 mg/dL (9-16); Calcium 9.7 mg/dL (8.4-10.2); Carbon Dioxide 23 mmol/L (22-29); Chloride 110 mmol/L (96-108); Estimated Glomerular Filt Rate > 60; Potassium 4.4 mmol/L (3.3-5.1); Sodium 141 mmol/L (135-145); Total Protein 6.9 g/dL (6.5-8.0)
[2024-12-01 10:52] VITALS: BMI 34.4
[2024-12-03] VITALS (15 sets, daily range): BP systolic 97–132; BP diastolic 52–86; PULSE 61–82; RESP 14–18; TEMP 36–36.4; O2SAT 95–100; BMI 34.8
[2024-12-03 06:26] LABS: UPreg QC Valid YES
[2024-12-03] MEDS: Lactated Ringers 1,000 ML 100 ML IVCONT ×3 (06:35→21:53)
[2024-12-03] MEDS: Aprepitant 32 MG/4.4 ML VIAL IVPUSH (06:39)
--- NOTE | 2024-12-03 07:30 | P.CONAN_ITS ---
Documented by User: Amy Franco NP 12/02/24 09:01 HPI - Anesthesia Eval Consult details Narrative: 39yo F for Repair Hernia Diaphragmatic Lap Reducible PMFSH Active Problems Active Problems: All Active Problems Paraesophageal hernia with gastroesophageal reflux (Acute) S/P ACL reconstruction (Acute) Left ACL tear (Acute) Internal derangement of knee (Acute) Gastroparesis (Acute) Early satiety (Acute) Vitamin D deficiency (Acute) Upper abdominal pain (Acute) GERD with esophagitis (Acute) Right upper quadrant pain (Acute) Past Medical History Medical History Right upper quadrant pain GERD (gastroesophageal reflux disease) Elevated lipase Family History Family History (Updated 11/19/24 @ 11:09 by Keyanna Wallace CMA) Mother Diabetes Father No problems noted. Son Migraine Daughter Asthma Family history of problems with anesthesia: No Surgical History Surgical History History of repair of ACL H/O esophagogastroduodenoscopy S/P dilatation and curettage H/O section History of Problems with Anesthesia: No Social History Social History (Updated 11/19/24 @ 11:09 by Keyanna Wallace CMA) Household Members Other:: minor children Are you a primary family day care provider to a significant other at home: Yes Do you presently have visiting nurse or other home services: No Alcohol intake: former Patient Tobacco Use Status: Current everyday Tobacco user Tobacco use type: Cigarette Cigarettes Per Day: 4 Years Smoked: 5 Use of substances other than those prescribed or required for medical reasons: Yes Substance Use Type Other:: smokes daily-advised to hold pre-op Substance Use Frequency: Daily Have you been hit, kicked, punched, or otherwise hurt by someone within the past year? 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 Allergies Allergy/AdvReac Type Severity Reaction Status Date / Time No Known Allergies (No Known Allergy Verified 12/03/24 06:13 Allergies*) Exam Height,Weight and Vital Signs: Height 5 ft 2 in Weight 85.275 kg Pertinent Lab Results Pertinent Lab Results: Laboratory Tests 11/21/24 11/21/24 09:45 09:46 WBC 5.4 RBC 4.50 Hgb 12.6 Hct 37.3 MCV 82.9 MCH 28.0 MCHC 33.8 RDW 13.8 Plt Count 289 MPV 10.0 Immature Gran % (Auto) 0.2 Neut % (Auto) 50.0 Lymph % (Auto) 37.9 [place] % (Auto) 8.4 Eos % (Auto) 2.8 Baso % (Auto) 0.7 Lymph # (Auto) 2.0 [place] # (Auto) 0.5 Eos # (Auto) 0.2 Baso # (Auto) 0.0 Abs Immat Gran (auto) 0.01 Absolute Neuts (auto) 2.7 Absolute Nucleated RBC 0.000 Nucleated RBC % (auto) 0.0 PT 10.7 L INR 0.9 APTT 27.8 Sodium 141 Potassium 4.4 Chloride 110 H Carbon Dioxide 23 Anion Gap 12 BUN 12 Creatinine 0.89 Estim Creat Clear Calc TNP Estimated GFR > 60 Random Glucose 95 Estimat Average Glucose 111 Hemoglobin A1c % 5.5 Calcium 9.7 Total Bilirubin 0.3 AST 21 ALT 18 Alkaline Phosphatase 66 Total Protein 6.9 Albumin 4.3 TSH 0.45 Blood Type B Positive Antibody Screen NEGATIVE Narrative Narrative: EKG 10/2024 Vent. Rate : 77 BPM Atrial Rate : 77 BPM P-R Int : 138 ms QRS Dur : 80 ms QT Int : 404 ms P-R-T Axes : 44 10 25 degrees QTcB Int : 457 ms Normal sinus rhythm Normal ECG No previous ECGs available Assessment and Plan Assessment Anesthesia Assessment: Chart Reviewed Final Anesthetic Review Family History of Problems with Anesthesia: No History of Problems with Anesthesia: No Documented by User: Juany Roberson DO 12/03/24 08:14 [facility] Past Medical History Medical History Right upper quadrant pain GERD (gastroesophageal reflux disease) Elevated lipase Family History Family History (Updated 11/19/24 @ 11:09 by Keyanna Wallace CMA) Mother Diabetes Father No problems noted. Son Migraine Daughter Asthma Family history of problems with anesthesia: No Surgical History Surgical History History of repair of ACL H/O esophagogastroduodenoscopy S/P dilatation and curettage H/O section History of Problems with Anesthesia: No Social History Social History (Updated 11/19/24 @ 11:09 by Keyanna Wallace CMA) Household Members Other:: minor children Are you a primary family day care provider to a significant other at home: Yes Do you presently have visiting nurse or other home services: No Alcohol intake: former Patient Tobacco Use Status: Current everyday Tobacco user Tobacco use type: Cigarette Cigarettes Per Day: 4 Years Smoked: 5 Use of substances other than those prescribed or required for medical reasons: Yes Substance Use Type Other:: smokes daily-advised to hold pre-op Substance Use Frequency: Daily Have you been hit, kicked, punched, or otherwise hurt by someone within the past year? 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 [employer] Allergies Allergy/AdvReac Type Severity Reaction Status Date / Time No Known Allergies (No Known Allergy Verified 12/03/24 06:13 Allergies*) Exam Exam Date and Time: 12/03/24 0730 Height,Weight and Vital Signs: Height 5 ft 2 in Weight 85.275 kg Vital Signs Temperature 97.5 F 12/03/24 06:44 Pulse Rate 78 12/03/24 06:44 Respiratory Rate 16 12/03/24 06:44 Blood Pressure 102/64 12/03/24 06:44 Pulse Oximetry 98 12/03/24 06:44 Oxygen Delivery Method Room Air 12/03/24 06:44 Temperature 97.5 F 12/03/24 06:44 Pulse Rate 78 12/03/24 06:44 Respiratory Rate 16 12/03/24 06:44 Blood Pressure 102/64 12/03/24 06:44 Pulse Oximetry 98 12/03/24 06:44 Oxygen Delivery Method Room Air 12/03/24 06:44 Airway Mallampati Class: II TM Dist: >3cm Neck ROM: Full Loose/Missing/Broken Teeth: No (patient denies any loose or broken teeth) Heart: S1S2 Lungs: CTAB Assessment and Plan Assessment Anesthesia Assessment: Anesthesia Plan Discussed and Chart Reviewed Final Anesthetic Review Family History of Problems with Anesthesia: No History of Problems with Anesthesia: No NPO: Yes ASA Class: II Final Preanesthetic Review: No Changes in Pt Med Stat, Meds/Allgs Chart Reviewed, Consent Obtained/Reviewed and Anes Risks/Benef Reviewed Patient Risk: Low Procedure Risk: Intermediate Anesthetic Plan Anesthetic Plan: GA and Agree w/ Assess. and Plan Disposition: Standard PACU
--- NOTE | 2024-12-03 07:31 | MHC.SHP ---
Pre-Procedural Eval Section A - 24 Hr Update-Section A only Date of Service: 12/03/24 The patient is an INPATIENT: Yes The patient has been examined within 24 hours of the surgical procedure. The History & Physical has been completed within 30 days and I have reviewed it.: Yes Section B - Complete if H&P > 30 days Chief Complaint: Diaphragmatic hernia without obstruction or gangre Relevant Family History (Specify if Yes): No Relevant Social History: None Present Medications: None Medical History: No relevant PMH History of Previous Operations: No relevant previous surgery Allergies: Allergies Allergy/AdvReac Type Severity Reaction Status Date / Time No Known Allergies (No Known Allergy Verified 12/03/24 06:13 Allergies*) Review of Systems Sugical H&P ROS: Negative: Constitution, Cardiovascular, Respiratory, Neurological, Psychiatric, Hem-Onc, Allergic/Immunologic, Gastrointestinal, Genitourinary, Musculoskeletal, Integumentary, Endocrine and Eyes/Ears/Nose/Throat Exam Surgical H&P Exam: Normal: HEENT, Normal: Heart, Normal: Lungs, Normal: Extremities, Normal: Abdomen, Normal: Skin and Normal: Neurological Plan Diagnosis/Plan: Unchanged I have reviewed the history and physical and performed a pertinent physical examination on my patient. No changes have occurred unless specified. Time Spent With Patient Time: Total time managing care of this patient today ____ minutes.
--- NOTE | 2024-12-03 07:48 | P.BOP_ITS ---
Brief Operative Note Date of Service: 12/03/24 Pre-op diagnosis: Paraesophageal hernia Post-op diagnosis: same Procedure: Date of Service: 12/03/2024 Pre-op diagnosis: Diaphragmatic hernia Post-op diagnosis: same (Large paraesophageal hernia & abdominal adhesions) Procedure: Procedure: COMORBIDITIES: GERD, diaphragmatic hernia, hyperlipidemia, anxiety, depression, hypertension, knee pain ?INDICATIONS: The patient is a 39 year old female who was referred to me from Dr. Avendano for a diaphragmatic hernia and GERD confirmed by EGD and CT. The patient is scheduled today for diaphragmatic hernia repair. Risks of recurrent hernia, dysphagia, persistent GERD, VTE, leak, infection and bleeding were discussed with the patient and he is in agreement with the plan. PROCEDURE: Esophago-gastroscopy, laparoscopic lysis of adhesions, laparoscopic repair of incarcerated diaphragmatic hernia and laparoscopic gastropexy. DESCRIPTION OF PROCEDURE: After informed consent was obtained from the patient, the patient was given preoperative antibiotics, and was transferred to the operating room. After successful induction of general anesthesia, pneumatic compression devices were placed on both lower extremities. An upper endoscopy was performed next. The oropharynx and upper esophagus appeared to be within normal limits. The stomach was entered and the scope was advanced all the way to the pylorus.? After all fluid and air were suctioned and the stomach was fully decompressed, the scope was withdrawn and secured in the mid esophagus. The patient was then prepped and draped in the usual sterile manner. Abdominal access was established at the right upper quadrant with the Scott technique. A 12 mm blunt trocar was inserted and the abdomen was insufflated with CO2 to a pressure of 15 mmHg. Following that additional ports were placed, specifically two 5 mm Versi-step ports to the left upper and one 5 mm Versi-step to the right upper quadrant. 1% lidocaine plain was used to infiltrate all port sites as well as all fascia defects. Following that, the patient was placed in a steep reverse Trendelenburg position. An additional 5 mm port was placed to the right flank for the Mediflex retractor that was used to retract the left lobe of the liver. There was a large paraesophageal hernia with about half of the stomach herniated into the chest next to the esophagus. I then opened the gastrocolic ligament between the transverse colon and the greater curvature of the stomach with the ultrasonic device to enter the lesser sac and facilitate the ligation of the short gastric vessels. I started at at the upper third along the greater curvature and using the Thunderbeat, all attachments were divided. There was an obvious significant-sized paraesophageal hiatal hernia. The stomach was incarcerated into the mediastinum with multiple thick adhesions. Mobilization of the stomach was very difficult and required tedious and careful dissection of the proximal short gastric vessels. I continued dissecting along the hiatus toward the left uriel into the mediastinum mobilizing the hernia sac from the mediastinum. The esophagus was carefully dissected off the aorta. The pleura spaces were not violated in either side. The pars flaccida was opened. It was actually herniated into the hernia defect. The vena cava was not dilated and it was carefully protected. I then continued by dissecting even further into the posterior retro-esophageal space all the way to the angle of His. I continued to mobilize the esophagus into the mediastinum circumferentially. The esophagus was densely adhrent to the aorta and the majority of these adhesions were mobilized. Both vagal nerves were seen and preserved. With extensive circumferential dissection into the mediastinum, I was able to bring the GE junction at least 3cm below the crura. I closed the hernia defect with four interrupted #0 Surgidac sutures using the Endo Stitch device, three of which were placed posterior and one of which anterior to the esophagus. The bites were carefully placed to include both the ventral and dorsal aspect of the two crura, advancing slightly more at the left uriel as it was located more diagonally than the right. ? A gastropexy was then performed in order to prevent postoperative GERD and partial gastric volvulus. Several interrupted 2.0 Surgidac sutures were placed between the greater curvature of the dissected stomach and the previously divided greater omentum and gastro-colic ligament using the Endo-Stitch device. ?An upper endoscopy was performed. There was no narrowing at the GE junction or any esophageal injury. The scope was easily advanced all the way to the pylorus which was clearly visualized. There was no narrowing anywhere. I confirmed that the GE junction was 3cm intra-abdominally. At that point the gastroscope was withdrawn from the patient?s mouth while we were decompressing the bowel and the stomach from any remaining air. I looked into the lesser sac to see how the stomach was situating and it was situating well. There was no bleeding from the, spleen, or short gastric vessels. The Mediflex retractor was removed, and the undersurface of the liver was inspected and there was no bleeding. The patient was placed in supine position. Then 30cc of Ropivacaine plain with 10 mg of Dexamethasone were used to infiltrate the fascial closure as well as all skin incisions. At this point, the abdomen was deflated, all ports were removed under direct vision, and no bleeding was noted from any of the port sites. The skin incisions were irrigated with saline and were closed with 4-0 absorbable monofilament sutures. Steri- Strips and OpSites were used to cover all incisions. The patient was extubated and was transferred in stable condition to the recovery room for further care. I was present and performed all bright parts of the procedure. Ms. Hickman was the rn first assist. There were no residents to assist with this case. Griffin Holliday MD, PhD, FACS Surgeon: Donny Holliday MD Anesthesia: GETA, local and other (TAP block) Was an Hematology Specialist used for this Procedure?: No Hematology Specialist: Deborah Hickman Estimated blood loss (mL): 10 IV fluids (mL): 2,000 Urine output (mL): 0 (No Martinez to record output) Pathology: none sent Condition: stable Disposition: PACU
--- NOTE | 2024-12-03 07:50 | P.PNGS_ITS ---
Subjective Subjective Date of Service: 12/04/24 Interval history: Feels well. Mild incisional pain. She is tolerating phase 1 bariatric diet Physical Exam 2 Vital Signs: Vital Signs: Last Vital Signs Temp 97.5 F 12/03/24 06:44 Pulse 78 12/03/24 06:44 Resp 16 12/03/24 06:44 BP 102/64 12/03/24 06:44 Pulse Ox 98 12/03/24 06:44 O2 Del Method Room Air 12/03/24 06:44 BMI result Body Mass Index 34.8 GI: Inspection: Yes normal to inspection, Yes incision (clean, dry and intact) and Yes obesity Palpation (GI): Soft to palpation Extrem: Right lower extremity: normal to inspection (no calf tenderness) L eft lower extremity: normal to inspection (no calf tenderness) Objective Data Active Medications Lactated Ringer's (Lr) 1,000 mls @ 100 mls/hr IVCONT .Q10H RENAE Stop: 12/03/24 10:14 Last Admin: 12/03/24 06:35 Dose: 100 mls/hr Documented By: JESSICA Labs 12/04/24 05:30 12/04/24 05:30 Labs: Laboratory Results - last 24 hr 12/03/24 06:15 Urine Test NEGATIVE Procedures Date of Service Date of Service: 12/04/24 Progress Note: A&P Assessment and plan (1) Paraesophageal hernia with gastroesophageal reflux: Status: Acute Assessment and Plan: s/p laparoscopic lysis of adhesions, diaphragmatic hernia repair and gastropexy Doing well Will check am labs and if OK the patient will be discharged home (2) GERD with esophagitis: Status: Acute (3) Status post repair of paraesophageal diaphragmatic hernia: Status: Acute (4) Congenital intra-abdominal adhesions: Status: Acute Time Spent With Patient Time: Total time managing care of this patient today ____ minutes. Quality Stroke Does the patient have a stroke diagnosis?: No VTE Prior VTE?: No VTE Risk Level:: Surgical - moderate VTE Device Contraindication: N/A - Device Ordered VTE Drug Contraindication: Treatment Not Indicated
--- NOTE | 2024-12-03 10:16 | PM.DS ---
DS: Providers Provider Date of Service: 12/04/24 Date of admission: 12/03/24 06:10 Date of discharge: 12/04/24 Primary care physician: Unknown Physician DS: Diagnosis Discharge Diagnosis (1) Paraesophageal hernia with gastroesophageal reflux: Status: Acute (2) GERD with esophagitis: Status: Acute DS: Summary Hospital Course Hospital Course: ADMITTING DIAGNOSIS: diaphragmatic hernia, GERD DISCHARGE DIAGNOSIS: same, s/p gastropexy with diaphragmatic hernia repair PAST SURGICAL HISTORY:? History of repair of ACL H/O esophagogastroduodenoscopy S/P dilatation and curettage H/O section PROCEDURE: upper endoscopy, laparoscopic diaphragmatic hernia repair and gastropexy DISCHARGE SUMMARY: History of Present Illness: The patient is a?39 year-old woman with a BMI of?34.8 kg/m2 and associated co-morbidities as described above. The patient presented to the office with GERD despite PPI use and CT findings of a large type III paraesophageal hernia. She was electively scheduled for laparoscopic, possible open diaphragmatic hernia repair and gastropexy. Risks and complications of the surgery were discussed with the patient in advance, particularly the possibility of , pulmonary embolism, anastomotic leak, bleeding, bowel injury, GERD, cardiac, renal or pulmonary complications. The patient understood all the risks and was in agreement with the surgical plan. Hospital Course: The patient underwent an uneventful laparoscopic gastropexy and repair of diaphragmatic hernia on the day of admission. Postoperatively, the patient was transferred to the surgical floor. The patient received IV acetaminophen and IV Dilaudid for pain control. Patient was started on bariatric phase 1 diet POD #0. On postoperative day one, the patient was feeling well without nausea, vomiting, fevers, or tachycardia. The patient had some mild incisional pain and the abdomen was soft.? ? On the morning of postoperative day one, the patient was continued on 1 ounce of water or ice every half hour. During the day, the patient did fairly well, having some incisional pain, but able to ambulate adequately and to tolerate liquids well. Since the patient is doing well, we decided that the patient was ready to be discharged. The patient was given instructions to follow-up in office next week and to call the office for any fever over 101, persistent abdominal pain, nausea, vomiting, GERD, symptoms of DVT such as calf tenderness, or leg swelling, or pulmonary embolism such as chest pain or shortness of breath.? The patient was also instructed to drink 40-60 ounces of liquids per day using the 1-ounce cups. The patient had been given prescriptions for Tylenol for pain, Zofran prn for nausea, and pantoprazole and carafate previously. The patient was encouraged to ambulate and use the incentive spirometer. The patient was allowed to shower, but no baths, and encouraged to stay active at home. All of these instructions were given to the patient personally. All questions were answered and the patient understood all instructions, the instructions were also given to the patient in print. Time Attestation Discharge Coordination Time (in mins): 30 Quality: Safe Use of Opioids Does Pt have an Active Cancer Diagnosis on the Problem List?: No Quality: Stroke Does the patient have a stroke diagnosis?: No Physical Exam Vital Signs: Vital Signs: Last Vital Signs Temp 97 F 12/03/24 10:00 Pulse 73 12/03/24 10:10 Resp 14 12/03/24 10:10 BP 106/65 12/03/24 10:10 Pulse Ox 99 12/03/24 10:10 O2 Del Method Simple Mask 12/03/24 10:10 O2 Flow Rate 4 12/03/24 10:10 BMI result Body Mass Index 34.8 DS: Data Data Completed and Pending Labs on day of discharge: Laboratory Results - last 24 hr 12/03/24 06:15 Urine Test NEGATIVE Discharge Plan Discharge Anticipated Discharge Date/Time: 12/04/24 10:00 Patient Disposition: Home, Self-Care Discharge Diagnosis: s/p laparoscopic diaphragmatic hernia repair with gastropexy Referrals: Physician,Unknown J [Primary Care Provider, Medical] - 1 Week Discharge Medications: Continued esomeprazole magnesium 20 mg capsule,delayed release(DR/EC) 20 mg PO BID Qty: 60 4RF (DME) Cold Therapy Device See Rx Instructions .Route .MEDSUPPLY Qty: 1 0RF Rx Instructions: Breg Polar Care Wave with Cold Compression Knee Pad Discontinued ibuprofen 600 mg tablet 600 mg PO Q6H PRN (Reason: pain) Qty: 30 0RF Discharge Orders: Discharge Order (Routine); Ordered 12/04/24 Ordered By: Donny Holliday Activity on Discharge: No heavy lifting Stand Alone Forms: Patient Portal Discharge page Print Language: Arabic Care Plan Goals: resolution of GERD and diaphragmatic hernia Health Concerns: GERD, diaphragmatic hernia Plan of Treatment: No tub baths, sex or returning to work until discussed at first post op appointment. No alcohol, tobacco or illegal drug use. Continue to use incentive spirometer hourly while awake. Walk in home for 5- 10 minutes every 2 hours during the first week. Wear abdominal binder with activity. Follow all meal plan instructions from your bariatric surgeon. Review bariatric handbook and call with any questions. Discharge Instructions 1. Please call your doctor or come back to the emergency room should any new symptoms arise. 2. Activity: abstain from alcohol,? limited stair climbing, no bending, no driving, no exercise, no illicit substances, no lifting, no sex, no tub bath, no work. 4. Diet: follow your bariatric surgeon's recommendations for advancing diet. 5. Dressing Change/Wound Care: Your incisions are covered with waterproof dressings. You can shower with these and pat dry. Do not rub over dressings or incisions. If the area is tender, you may apply an ice pack for short intervals (no more than 20 minutes on, followed by at least 20 minutes off). Do not apply heat. Do not use creams, lotions, or topical antibiotics unless instructed to do so by your surgeon. 6. Call your doctor if: - Your temperature exceeds 101.5 F - You experience excessive pain or swelling - You have an unexpected reaction to medication - You have excessive bleeding - You experience continued vomiting/nausea - Your incision begins to separate - Your incision shows signs of infection such as increased redness, swelling, excessive pain, heat, or drainage (light blood or clear fluid is normal) General instructions: No lifting greater than 10 lbs for the next 6 weeks. No driving within 24 hours of taking narcotic pain medications. If you do not move your bowels in the next 2 days, please take milk of magnesia over the counter. Please follow the post op diet and do not advance your diet until instructed by your surgeon or until you are seen in the office in about 1 week. Please walk around your home every hour or two to prevent blood clots from forming in your legs. You do not need to wake from sleeping to walk. Please sleep in a bed or couch to prevent kinking at the hips and knees. Please take your incentive spirometer (your lung equipment maintenance tech) home with you and use it for the next few days to prevent pneumonias. You may shower; no hot tubs, baths or swimming pools. Please make sure you are consuming 40-60 ounces of total fluids per day. Avoid all carbonation. Please call the office with any questions or concerns such as increasing abdominal pain, fever, chills, shortness of breath, chest pain, leg pain or swelling, or redness or drainage from your incisions. Do not hesitate to contact the office with any questions at . The patient's medical history has been reviewed and they are considered low risk for post op DVT and therefore DVT prophylaxis is not considered necessary. Travel after surgery was reviewed. The patient has not disclosed any travel plans during the first 30 days after surgery and they have been advised that within the first 30 days after surgery any bus, plane, train or car travel over 2 hours in duration is contraindicated due to the possibility of developing blood clots from immobility. Any travel, needs to include periods of ambulation of 10 minutes in duration every 2 hours.? The patient was instructed to discuss any plans for travel during this period with their bariatric surgeon. Assessment: s/p laparoscopic diaphragmatic hernia repair with gastropexy Discharge Date/Time: 12/04/24 09:54
[2024-12-03 10:35] LABS: Hematocrit 35.9 % (37.0-47.0); Hemoglobin 12.1 g/dl (12.0-16.0)
[2024-12-03 10:47] LABS: Anion Gap 11 (12-20); Blood Urea Nitrogen 8 mg/dL (9-16); Calcium 8.5 mg/dL (8.4-10.2); Carbon Dioxide 23 mmol/L (22-29); Chloride 111 mmol/L (96-108); Creatinine Clr Calc Pharmacy 83.6; Estimated Glomerular Filt Rate > 60; Potassium 4.0 mmol/L (3.3-5.1); Sodium 141 mmol/L (135-145)
--- NOTE | 2024-12-03 11:49 | PHA.MEDREC ---
Pharmacy Consult ? Medication Reconciliation Pharmacy has reviewed the medication reconciliation done by nursing.
[2024-12-03] MEDS: 0.9 % Sodium Chloride Flush 3 ML SYRINGE IVFLUSH (20:17)
[2024-12-04 03:28] VITALS: BP 115/69; PULSE 69; RESP 18; TEMP 36.1; O2SAT 99
[2024-12-04 05:37] LABS: MANUAL DIFF FLAG NO
[2024-12-04 06:05] LABS: Anion Gap 12 (12-20); Blood Urea Nitrogen 8 mg/dL (9-16); Calcium 8.7 mg/dL (8.4-10.2); Carbon Dioxide 23 mmol/L (22-29); Chloride 109 mmol/L (96-108); Creatinine Clr Calc Pharmacy 98.4; Estimated Glomerular Filt Rate > 60; Potassium 4.0 mmol/L (3.3-5.1); Sodium 140 mmol/L (135-145)
[2024-12-04 07:14] LABS: Hematocrit 33.0 % (37.0-47.0); Hemoglobin 11.4 g/dl (12.0-16.0); Imm Gran Abs Auto 0.09 X10*3/uL (0.00-0.03); Imm Gran Pct Auto 0.7 % (0.0-0.4); Lymphocytes Absolute Auto 1.6 X10*3/uL (1.2-4.9); Mean Corpuscular HGB Conc 34.5 g/dl (31.0-35.0); Mean Corpuscular Hemoglobin 28.0 pg (27.0-33.0); Mean Corpuscular Volume 81.1 fL (80.0-98.0); NRBC Abs Auto 0.000 X10*3/uL (0.0-0.012); NRBC Pct Auto 0.0 /100WBC (0.0-0.2); Platelet Count 281 X10*3/uL (160-400); Red Blood Count 4.07 X10*6/uL (4.20-5.50); White Blood Count 13.4 X10*3/uL (4.8-10.8)
[2024-12-04 08:00] VITALS: BP 129/67; PULSE 72; RESP 18; TEMP 36.5; O2SAT 96
--- NOTE | 2024-12-04 08:34 | HO.POSTANES ---
Post Anesthesia Evaluation Post Anesthesia Evaluation Date of Service: 12/03/24 Vital Signs: Vital Signs Temp Pulse Resp BP Pulse Ox O2 Del Method 12/04/24 08:00 97.7 F 72 18 129/67 96 Room Air 12/04/24 03:28 97 F 69 18 115/69 99 Room Air 12/03/24 23:14 97.3 F 67 18 126/71 98 Room Air Anesthesia: General Mental Status: Awake Pain Control: Satisfactory Nausea/Vomiting: None Hydration: Adequate Anesthesia-Related Issues: No Anes. Related Issues
== END 2024-12-04 09:54 | disposition home or self-care (01) | DRG 220 ==
LOC: HO.SSSA 10:11 → HO.S3 11:16
PROVIDERS: Nurse Practitioner; Physician Assistant Surgical; Admitting Provider Surgery; Visit Provider Surgery
PROC: 0BQT4ZZ Repair Diaphragm, Percutaneous Endoscopic Approach (ICD-10-PCS; principal; 2024-12-03 07:30)
DX: K44.0 Diaphragmatic hernia with obstruction, without gangrene (principal); E78.5 Hyperlipidemia, unspecified; K21.9 Gastro-esophageal reflux disease without esophagitis; F41.9 Anxiety disorder, unspecified; F32.A Depression, unspecified; Z79.899 Other long term (current) drug therapy
CPT/HCPCS: 36415; 80048; 80053; 81025; 83036; 84443; 85014; 85018; 85025; 85610; 85730; 86850; 86900; 86901; A4649; C9145; J0131; J0690; J1100; J1171; J1308; J2003; J2250; J2405; J2704; J2795; J3010; J7120

== ENCOUNTER → 2024-12-03 06:10 | Outpatient (BNV) | payer OTHER, SELFPAY | PROVIDERS: Admitting Provider Surgery; Visit Provider Surgery | DX: K44.9 Diaphragmatic hernia without obstruction or gangrene (principal); K21.9 Gastro-esophageal reflux disease without esophagitis; K21.00 Gastro-esophageal reflux disease with esophagitis, without bleeding; Z98.890 Other specified postprocedural states; Z87.19 Personal history of other diseases of the digestive system; Q43.3 Congenital malformations of intestinal fixation | CPT/HCPCS: 43281; 99024 ==

== ENCOUNTER 2024-12-12 10:44 | Outpatient (AMB) | payer OTHER, SELFPAY ==
--- NOTE | 2024-12-12 10:47 | MHC.OFFVISWM ---
VS Expanded 12/12/24 10:55 BP 130/60 Blood Pressure Location Rt brachial Blood Pressure Position Sitting Pulse 98 Pulse Source Pulse Oximeter Temp 96.0 F L Temperature Source Temporal Artery Scan Pulse Oximetry 96 Oxygen Delivery Method Room Air Height 5 ft 2 in Weight 175 lb BMI 32.0 Body Fat % 40.6 Body Fat Mass 71.0 Fat Free Mass 103.8 Visceral Fat Rating 8.0 Body Water % 42.5 Body Water Mass 74.2 Muscle Mass/Score 98.6 Basal Metabolic Rate/Score 1,456 Intake Visit Reasons: (OV) s/p Diaphragmatic Hernia 12/02/24 Allergies No Known Allergies (No Known Allergies*) Allergy (Verified 12/12/24 10:50) HPI Comments Details: Patient is a 39-year-old female who returns to the office today in follow-up. She is 9 days post hiatal hernia repair performed on 12/03/2024 for significant reflux. Weight today is 175 lb with a BMI of 32. She is tolerating 2 celebrate rebuild shakes with 1 scoop each in 8 oz of almond milk at9-11 3-5. She is also supposed to be having 2 celebrate bars but she does not like them as well as 4 forks of eggs at 18:00. She has moved her bowels. She is consuming a proximally 45-50 oz of fluids. [facility] Medical History (Updated 12/12/24 @ 00:02 by Herminio Morin) Right upper quadrant pain GERD (gastroesophageal reflux disease) Elevated lipase Surgical History (Updated 12/12/24 @ 10:51 by Keyanna Wallace CMA) Status post repair of paraesophageal diaphragmatic hernia History of repair of ACL H/O esophagogastroduodenoscopy S/P dilatation and curettage H/O section Family History Mother Diabetes Father No problems noted. 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 She will communicate with Dr. Holliday regarding the displeasure of the bars. She will continue to wear her abdominal binder for the next 2 weeks with exercise and activity. She may resume walking outside as she had done prior to surgery. She was advised to continue to drink fluids at the appropriate pace. Text with any questions or concerns. Return to clinic 3 weeks.
[2024-12-12 10:55] VITALS: BP 130/60; PULSE 98; TEMP 35.6; O2SAT 96; BMI 32.0
== END 2024-12-12 11:05 | disposition home or self-care (01) ==
LOC: HO.HBS 10:45
PROVIDERS: Visit Provider Physician Assistant Surgical
DX: Z98.890 Other specified postprocedural states (principal); Z87.19 Personal history of other diseases of the digestive system
CPT/HCPCS: 99024

== ENCOUNTER 2024-12-30 10:24 | Outpatient (AMB) | payer OTHER, SELFPAY ==
[2024-12-30 10:25] VITALS: BP 144/65; PULSE 68; TEMP 35.3; O2SAT 97; BMI 32.3
--- NOTE | 2024-12-30 10:25 | A.OFFVIS_ITS ---
VS Expanded 12/30/24 10:25 12/30/24 10:36 BP 144/65 H 111/57 L Blood Pressure Location Rt brachial Rt brachial Blood Pressure Position Sitting Sitting Pulse 68 77 Pulse Source Pulse Oximeter Pulse Oximeter Temp 95.5 F L 96.5 F L Temperature Source Temporal Artery Scan Temporal Artery Scan Pulse Oximetry 97 96 Oxygen Delivery Method Room Air Room Air Height 5 ft 4 in 5 ft 2 in Weight 188 lb 6.4 oz 184 lb 3.2 oz BMI 32.3 33.7 Body Fat % 39.5 32.1 Body Fat Mass 74.2 59.0 Fat Free Mass 114.0 125.0 Visceral Fat Rating 11.0 7.0 Body Water % 42.9 48.5 Body Water Mass 80.6 89.2 Muscle Mass/Score 108.2 118.6 Basal Metabolic Rate/Score 1,557 1,695 Intake Visit Reasons: (OV) s/p Diaphragmatic Hernia 12/02/24 Allergies No Known Allergies (No Known Allergies*) Allergy (Verified 12/30/24 10:37) HPI Comments Details: Patient is a pleasant 39-year-old female who returns to the office today in follow-up. She is 1 month post hiatal hernia repair performed on 12/02/2024. Weight today is 184.2 lb with a BMI of 33.7. No further complaints of reflux. Overall feels great and good energy levels. Meal plan: 2 celebrate rebuild shakes with 1 scoop each in 8 oz of almond milk at 9-11, 3- 5. 2 celebrate bars 12-2, 8-10 meal at 6 pm 6 forks protein and 6 forks veg Exercise plan: Stattionary bike coming this sunday walking outside 12 laps per day. Approx 4.5 mi per day. [facility] Medical History (Updated 12/12/24 @ 00:02 by Herminio Dajanna) Right upper quadrant pain GERD (gastroesophageal reflux disease) Elevated lipase Surgical History Status post repair of paraesophageal diaphragmatic hernia History of repair of ACL H/O esophagogastroduodenoscopy S/P dilatation and curettage H/O section Family History Mother Diabetes Father No problems noted. 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 Physical Exam Vital Signs: Last Vital Signs Temp 96.5 F L 12/30/24 10:36 Pulse 77 12/30/24 10:36 BP 111/57 L 12/30/24 10:36 Pulse Ox 96 12/30/24 10:36 Oxygen Delivery Method Room Air 12/30/24 10:36 BMI result Body Mass Index 33.7 Const General: healthy appearing and no acute distress Resp Effort & Inspection: normal respiratory effort Auscultation: clear to auscultation bilaterally Cardio Rate: regular rate Rhythm: regular rhythm GI Auscultation: normal bowel sounds Extrem General: Yes normal to inspection Assessment & Plan Assessment & Plan (1) Status post repair of paraesophageal diaphragmatic hernia: Code(s): Z98.890 - Other specified postprocedural states; Z87.19 - Personal history of other diseases of the digestive system Category: Surgical Plan: Patient has been following the meal plan although has been drinking excess amounts of water. She thought that she needed to do this based on an samantha that she was looking at. We corrected this and she will drink a proximally 64 oz of water daily. Additionally, she may begin to incorporate body weight exercises in 2 weeks. She will continue with walking outside and tracking her calories burned as well as her stationary bike which is arriving this week. We will have her return to the office in approximately 3 weeks. She will continue to communicate weekly with Dr. Holliday.
[2024-12-30 10:36] VITALS: BP 111/57; PULSE 77; TEMP 35.8; O2SAT 96; BMI 33.7
== END 2024-12-30 10:57 | disposition home or self-care (01) ==
LOC: HO.HBS 10:25
PROVIDERS: Visit Provider Physician Assistant Surgical
DX: Z98.890 Other specified postprocedural states (principal); Z87.19 Personal history of other diseases of the digestive system
CPT/HCPCS: 99024

== ENCOUNTER 2025-01-30 12:50 | Outpatient (AMB) | payer OTHER, SELFPAY ==
--- NOTE | 2025-01-30 12:55 | MHC.OFFVISWM ---
VS Expanded 01/30/25 13:19 BP 121/58 L Blood Pressure Location Rt brachial Blood Pressure Position Sitting Pulse 60 Pulse Source Pulse Oximeter Temp 97.9 F Temperature Source Temporal Artery Scan Pulse Oximetry 100 Oxygen Delivery Method Room Air Height 5 ft 2 in Weight 173 lb 9.6 oz BMI 31.7 Body Fat % 33.8 Body Fat Mass 58.6 Fat Free Mass 114.8 Visceral Fat Rating 7.0 Body Water % 47.4 Body Water Mass 82.2 Muscle Mass/Score 109.2 Basal Metabolic Rate/Score 1,568 Intake Visit Reasons: (OV) s/p Diaphragmatic Hernia 12/02/24 Allergies No Known Allergies (No Known Allergies*) Allergy (Verified 12/30/24 10:37) HPI Comments Details: Patient is a pleasant 39-year-old female who returns to the office today in follow-up. She is 2 months post hiatal hernia repair performed on 12/02/2024. Weight today is 184.2 lb with a BMI of 33.7. No further complaints of reflux. She states that she feels excellent. No reflux symptoms whatsoever. She is so happy to not have reflux symptoms which she had for years. She additionally reports persistent mild right leg swelling. She has a history of right leg swelling from her as well although this has worsened since her recent surgery. She had an ultrasound of her leg after her and was negative for DVT. We will again ultrasound given recent history. If negative, consideration for MRV for possible May-Thurner syndrome. Meal plan: 2 celebrate rebuild shakes with 1 scoop each in 8 oz of almond milk at 9-11, 3-5. 2 fit crunch bars 12-2, 8-10 meal at 6 pm 6 forks protein and 6 forks veg Exercise plan: gym at work - 3 days per week, stationary bike, treadmill, [address] walking outside 12 laps per day. Approx 4.5 mi per day. REPLACED BY [facility] Medical History (Updated 01/30/25 @ 13:05 by HECTOR Wolf) Right upper quadrant pain GERD (gastroesophageal reflux disease) Elevated lipase Surgical History Status post repair of paraesophageal diaphragmatic hernia History of repair of ACL H/O esophagogastroduodenoscopy S/P dilatation and curettage H/O section Family History Mother Diabetes Father No problems noted. 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 She will discuss with Dr. Holliday her meal plan with goal of transitioning to ready to drink shakes. She has been using the bars and exercising regularly. Overall she feels amazing and is very happy with the results of her procedure. (2) Right leg swelling: Code(s): M79.89 - Other specified soft tissue disorders Category: Medical Plan: Maybe anatomical variant consistent with May-Thurner syndrome. Typically this is left-sided swelling although she may have an anatomical variant given her history of right leg swelling during with negative ultrasound for DVT at that time. We will check ultrasound of right lower extremity to rule out DVT. If negative, consideration for referral to Interventional Radiology for further imaging studies. Orders: Orders US venous duplex LE RT Today M79.89 - Other specified soft tissue disorders, Z87.19 - Personal history of other diseases of the digestive system, Z98.890 - Other specified postprocedural states
[2025-01-30 13:19] VITALS: BP 121/58; PULSE 60; TEMP 36.6; O2SAT 100; BMI 31.7
== END 2025-01-30 13:20 | disposition home or self-care (01) ==
LOC: HO.HBS 12:51
PROVIDERS: Visit Provider Physician Assistant Surgical
DX: Z98.890 Other specified postprocedural states (principal); Z87.19 Personal history of other diseases of the digestive system; M79.89 Other specified soft tissue disorders
CPT/HCPCS: 99024

== ENCOUNTER 2025-02-21 10:00 | Outpatient (REF) | payer OTHER, SELFPAY ==
--- NOTE | ~2025-02-21 | US_ITS ---
CLINICAL HISTORY: RIGHT LEG SWELLING,S P REPAIR PARAESOPHAGEA DIAPH.HERNIA Venous duplex ultrasound right lower extremity Comparison: None provided Findings: The visualized deep veins are fully compressible with normal Doppler color flow and spectral tracings. No popliteal cyst. IMPRESSION: 1. Negative for right lower extremity deep vein thrombosis. This document has been electronically signed by: Maine Montana MD on 02/21/2025 12:56:52
== END 2025-02-21 10:01 | disposition home or self-care (01) ==
LOC: HO.US 10:00
PROVIDERS: Visit Provider Physician Assistant Surgical
DX: R60.0 Localized edema (principal); Z98.890 Other specified postprocedural states; Z87.19 Personal history of other diseases of the digestive system
CPT/HCPCS: 93971

== ENCOUNTER → 2025-02-21 10:03 | Outpatient (BNV) | payer OTHER, SELFPAY | PROVIDERS: Visit Provider Radiology Diagnostic Radiology | DX: R22.41 Localized swelling, mass and lump, right lower limb (principal) | CPT/HCPCS: 93971 ==